=== PATIENT | female | born 1930 | race Hispanic/Latino ===

== ENCOUNTER 2018-07-15 14:30 | Inpatient (IN) | payer MEDICARE ==
--- NOTE | 2018-07-15 17:07 | CT ---
Date of service: 07/15/2018 PROCEDURE: CT HEAD WITHOUT CONTRAST. HISTORY: fall, dizziness COMPARISON: None available. TECHNIQUE: Axial computed tomography images were obtained through the head/brain without intravenous contrast. Radiation dose: Total exam DLP = 1040.51 mGy-cm. This CT exam was performed using one or more of the following dose reduction techniques: Automated exposure control, adjustment of the mA and/or kV according to patient size, and/or use of iterative reconstruction technique. FINDINGS: HEMORRHAGE: No intracranial hemorrhage. BRAIN: There are severe chronic microangiopathic changes. There is a 7 mm isodense subependymal/periventricular lesion in the region of the left posterior body/atrium of the lateral ventricle. There is no mass effect or abnormal extra-axial fluid collection. There is no territorial infarction. The midline sagittal structures are normal.There are coarse atherosclerotic calcifications in the cavernous carotid arteries. VENTRICLES: There is mild age-related global parenchymal volume loss and proportionate enlargement of the ventricles and cortical sulci. CALVARIUM: There is mild hyperostosis frontalis interna. PARANASAL SINUSES: Predominantly clear. MASTOID AIR CELLS: Predominantly clear. OTHER FINDINGS: None. IMPRESSION: No acute intracranial abnormality. 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 MRI of the brain without and with intravenous contrast would be helpful for further characterization. Severe chronic microangiopathic changes and mild age-related global parenchymal volume loss.
[2018-07-15 17:17] LABS: BASO % 0.3 % (0.0-2.0); EOS % 0.1 % (0.0-4.0); HEMOGLOBIN 13.5 g/dL (11.0-16.0); LYMPH % 7.9 % (20.0-40.0); MEAN CELL VOLUME 90.5 fL (81.0-99.0); MEAN CORPUSCULAR HEMOGLOBIN 30.3 pg (27.0-31.0); MEAN CORPUSCULAR HGB CONC 33.5 g/dL (33.0-37.0); MEAN PLATELET VOLUME 7.6 fL (7.2-11.7); MONO # 0.7 K/uL (0.0-0.8); MONO % 5.3 % (0.0-10.0); NEUT % 86.4 % (50.0-75.0); NRBC % 0.1 % (0.0-2.0); PLATELET COUNT 178 K/uL (130-400); RBC 4.45 Mil/uL (3.80-5.20); RED CELL DISTRIBUTION WIDTH 13.9 % (11.5-14.5); WHITE BLOOD COUNT 12.7 K/uL (4.8-10.8)
[2018-07-15 17:29] LABS: BLOOD UREA NITROGEN 15 mg/dL (7-17); CALCIUM 9.7 mg/dl (8.6-10.4); GFR NON-AFRICAN AMERICAN > 60
--- NOTE | 2018-07-15 17:32 | C.PDOC ---
History Of Present Illness 87 y/o female presents to ED for evaluation of laceration to back of her head. Pt states she was making breakfast in the kitchen when she suddenly felt dizzy, fell to ground and struck back of her head. As per [facility] pt was found laying next to the bed. Patient's friend states she had called the front desk lead at [facility] today (after the pt did not lease picker her phone call) who went to check on the patient in her room and found patient laying next to her bed. Pt complains of dizziness and mild headache at this time. She admits to history of dizziness in the past and takes Meclizine. Otherwise, denies visual changes, nausea, vomiting, fever, or any other complaints at this time. - HPI Time Seen by Provider: 07/15/18 15:09 Chief Complaint (Nursing): Trauma History Per: Patient History/Exam Limitations: no limitations Recent travel outside of the [place]: No Additional History Per: Patient Past Medical History Reviewed: Historical Data, Nursing Documentation, Vital Signs Vital Signs: Last Vital Signs Temp 97.8 F 07/15/18 14:43 Pulse 95 H 07/15/18 14:43 Resp 17 07/15/18 14:43 BP 149/75 07/15/18 14:43 Pulse Ox 98 07/15/18 14:43 - Medical History PMH: Hypercholesterolemia Family History: States: Unknown Family Hx - Social History Hx Alcohol Use: No Hx Substance Use: No Review Of Systems Except As Marked, All Systems Reviewed And Found Negative. Constitutional: Negative for: Fever, Chills Eyes: Negative for: Vision Change Cardiovascular: Negative for: Chest Pain Respiratory: Negative for: Shortness of Breath Gastrointestinal: Negative for: Nausea, Vomiting, Abdominal Pain Neurological: Positive for: Headache, Dizziness. Negative for: Weakness, Numbness, Change in Speech Physical Exam - Physical Exam Appears: Non-toxic, No Acute Distress Skin: Warm, Dry Head: Atraumatic, Normacephalic, Laceration (1.5cm of laceration to left occipital scalp, bleeding controlled) Eye(s): bilateral: Normal Inspection, Other (no nystagmus) Oral Mucosa: Moist Neck: Normal ROM, Supple Chest: Symmetrical Cardiovascular: Rhythm Regular, No Murmur Respiratory: Normal Breath Sounds, No Rales, No Rhonchi, No Wheezing Gastrointestinal/Abdominal: Soft, No Tenderness Extremity: Normal ROM Neurological/Psych: Oriented x3, Normal Speech, No Other (no focal deficits) ED Course And Treatment - Laboratory Results Result Diagrams: 07/15/18 17:11 07/15/18 17:11 O2 Sat by Pulse Oximetry: 98 (RA) Pulse Ox Interpretation: Normal - CT Scan/US CT head Other Rad Studies (CT/US): Read By Radiologist CT/US Interpretation: Date of service: 07/15/2018. PROCEDURE: CT HEAD WITHOUT CONTRAST. HISTORY: fall, dizziness. COMPARISON: None available. TECHNIQUE: Axial computed tomography images were obtained through the head/brain without intravenous contrast. Radiation dose: Total exam DLP = 1040.51 mGy-cm. This CT exam was performed using one or more of the following dose reduction techni ques: Automated exposure control, adjustment of the mA and/or kV according to patient size, and/or use of iterative reconstruction technique. FINDINGS: HEMORRHAGE: No intracranial hemorrhage. BRAIN: There are severe chronic microangiopathic changes. There is a 7 mm isodense subependymal/periventricular lesion in the region of the left posterior body/atrium of the lateral ventricle. There is no mass effect or abnormal extra-axial fluid collection. There is no territorial infarction. The midline sagittal structures are normal.There are coarse atherosclerotic calcifications in the cavernous carotid arteries. VENTRICLES: There is mild age-related global parenchymal volume loss and pro portionate enlargement of the ventricles and cortical sulci. CALVARIUM: There is mild hyperostosis frontalis interna. PARANASAL SINUSES: Predominantly clear. MASTOID AIR CELLS: Predominantly clear. OTHER FINDINGS: None. IMPRESSION: No acute intracranial abnormality. 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 MRI of the brain without and with intravenous contrast would be helpful for further characterization. Severe chronic microangiopathic changes and mild age-related global parenchymal volume loss. Medical Decision Making Medical Decision Making: Plan: * Blood work * Urinalysis * Head CT * EKG * Meclizine Patient re-evaluated after receiving meclizine and was still dizzy, states she cannot even sit up due to the dizziness. This is not typical for her. Results discussed with patient, will admit for dizziness. Case discussed with Dr. Hernandez, medical service utilization review coordinator. Accepts patient for admission. Disposition - Disposition Disposition: HOSPITALIZED Disposition Time: 18:22 Condition: FAIR - Clinical Impression Clinical Impression: Dizziness - Scribe Statement The provider has reviewed the documentation as recorded by the Scribe KP All medical record entries made by the Scribe were at my direction and personally dictated by me. I have reviewed the chart and agree that the record accurately reflects my personal performance of the history, physical exam, medical decision making, and the department course for this patient. I have also personally directed, reviewed, and agree with the discharge instructions and disposition.
[2018-07-15 17:44] LABS: URINE BILIRUBIN NEGATIVE (NEGATIVE); URINE BLOOD NEGATIVE (NEGATIVE); URINE CLARITY Clear (Clear); URINE COLOR Straw (YELLOW); URINE GLUCOSE (UA) 1+ mg/dL (Normal); URINE LEUKOCYTE ESTERASE NEG Leu/uL (Negative); URINE PROTEIN NEGATIVE (NEGATIVE); URINE UROBILINOGEN NORMAL mg/dL (0.2-1.0)
[2018-07-15 19:33] LABS: BANDS 1 % (0-2); LYMPHOCYTE 8 % (20-40); MONOCYTE 6 % (0-10); NEUTROPHIL 85 % (50-75); PLATELET ESTIMATE NORMAL (NORMAL); TOTAL CELLS COUNTED 100
[2018-07-15 22:44] VITALS: RESP 20
[2018-07-15] MEDS: (Novolin R) Insulin Human Regular 100 units/ml vial SC SCH (22:48)
--- NOTE | 2018-07-15 23:25 | CP.PCM.HP ---
Past Patient History - Past Social History Smoking Status: Never Smoked - CARDIAC Hx Hypercholesterolemia: Yes - HEENT Hx Cataracts: Yes - ENDOCRINE/METABOLIC Hx Diabetes Mellitus Type 2: Yes - PSYCHIATRIC Hx Substance Use: No Meds Allergies/Adverse Reactions: Allergies Allergy/AdvReac Type Severity Reaction Status Date / Time No Known Allergies Allergy Verified 07/15/18 17:24 Results - Vital Signs Recent Vital Signs: Last Vital Signs Temp 98.5 F 07/15/18 22:19 Pulse 99 H 07/15/18 22:19 Resp 20 07/15/18 22:19 BP 144/80 07/15/18 22:19 Pulse Ox 97 07/15/18 22:19 - Labs Result Diagrams: 07/15/18 17:11 07/15/18 17:11 Labs: Laboratory Results - last 24 hr 07/15/18 07/15/18 07/15/18 17:11 17:11 17:36 WBC 12.7 H RBC 4.45 Hgb 13.5 Hct 40.2 MCV 90.5 MCH 30.3 MCHC 33.5 RDW 13.9 Plt Count 178 MPV 7.6 Neut % (Auto) 86.4 H Lymph % (Auto) 7.9 L [place] % (Auto) 5.3 Eos % (Auto) 0.1 Baso % (Auto) 0.3 Neut # (Auto) 11.0 H Lymph # (Auto) 1.0 Bladen # (Auto) 0.7 Eos # (Auto) 0.0 Baso # (Auto) 0.0 Neutrophils % (Manual) 85 H Band Neutrophils % 1 Lymphocytes % (Manual) 8 L Monocytes % (Manual) 6 Platelet Estimate Normal Sodium 137 Potassium 3.8 Chloride 99 Carbon Dioxide 25 Anion Gap 17 BUN 15 Creatinine 0.5 L Est GFR ( Amer) > 60 Est GFR (Non-Af Amer) > 60 POC Glucose (mg/dL) Random Glucose 137 H Calcium 9.7 Urine Color Straw Urine Clarity Clear Urine pH 7.0 Ur Specific [place] 1.010 Urine Protein Negative Urine Glucose (UA) 1+ Urine Ketones 1+ H Urine Blood Negative Urine Nitrate Negative Urine Bilirubin Negative Urine Urobilinogen Normal Ur Leukocyte Esterase Neg Urine WBC (Auto) 1 Urine RBC (Auto) 1 07/15/18 22:20 WBC RBC Hgb Hct MCV MCH MCHC RDW Plt Count MPV Neut % (Auto) Lymph % (Auto) [place] % (Auto) Eos % (Auto) Baso % (Auto) Neut # (Auto) Lymph # (Auto) [place] # (Auto) Eos # (Auto) Baso # (Auto) Neutrophils % (Manual) Band Neutrophils % Lymphocytes % (Manual) Monocytes % (Manual) Platelet Estimate Sodium Potassium Chloride Carbon Dioxide Anion Gap BUN Creatinine Est GFR ( Amer) Est GFR (Non-Af Amer) POC Glucose (mg/dL) 123 H Random Glucose Calcium Urine Color Urine Clarity Urine pH Ur Specific [place] Urine Protein Urine Glucose (UA) Urine Ketones Urine Blood Urine Nitrate Urine Bilirubin Urine Urobilinogen Ur Leukocyte Esterase Urine WBC (Auto) Urine RBC (Auto)
[2018-07-16] MEDS: (Novolin R) Insulin Human Regular 100 units/ml vial SC SCH ×4 (08:25→22:47)
[2018-07-16] MEDS: metFORMIN 250 mg Tab PO SCH ×2 (10:15→19:06)
[2018-07-16] MEDS: Enoxaparin 40 mg Syringe SC SCH (10:15)
--- NOTE | 2018-07-16 10:26 | MRI ---
Date of service: 07/16/2018 PROCEDURE: MRI BRAIN WITHOUT CONTRAST HISTORY: vertigo COMPARISON: Comparison is made to the previous CT head dated 07/15/2018 TECHNIQUE: Multiplanar, multisequence MR images of the brain were obtained without intravenous contrast enhancement. FINDINGS: HEMORRHAGE: None DWI: No evidence of an acute or early subacute infarction. BRAIN PARENCHYMA: There is a I is a T1 and T2 signal lesion at the lateral border of the posterior aspect of the left lateral ventricle at the junction of the left lateral ventricular body and atrium. The lesion is protruding into the posterior horn of the lateral ventricle. Findings likely represent ependyma mass or meningioma.. Mild atrophy is noted. There is extensive white matter changes again noted suggestive of chronic microvascular ischemic disease. VENTRICLES: Unremarkable. No hydrocephalus. CRANIUM: Unremarkable. ORBITS: Grossly unremarkable. PARANASAL SINUSES/MASTOIDS: Clear VASCULAR SYSTEM: Skull base flow voids intact. OTHER FINDINGS: None. IMPRESSION: Suboptimal assessment without IV contrast administration. 1.8 x 1.3 centimeter isointense T1 and T2 signal at the lateral border of the left lateral ventricle at the junction of the body and atrium. The differential diagnosis includes ependymoma mass versus meningioma. Follow-up reassessment by MRI after 3 months is suggested. No evidence of acute infarct or intracranial hemorrhage. Mild atrophy and extensive white matter changes likely represent chronic microvascular ischemic disease.
--- NOTE | 2018-07-16 20:09 | CP.PCM.PN ---
Subjective - Subjective Subjective: dictated Objective - Vital Signs/Intake and Output Vital Signs (last 24 hours): Temp Pulse Resp BP Pulse Ox 97.6 F 95 H 20 154/85 H 95 07/16/18 19:02 07/16/18 16:00 07/16/18 16:00 07/16/18 16:00 07/16/18 16:00 - Medications Medications: Current Medications Acetaminophen (Tylenol 325mg Tab) 650 mg PO Q6 PRN PRN Reason: Pain, Mild (1-3) Last Admin: 07/16/18 19:02 Dose: 650 mg Enoxaparin Sodium (Lovenox) 40 mg SC DAILY [facility] Last Admin: 07/16/18 10:15 Dose: 40 mg Influenza Virus Vaccine (Fluzone Quad [id number]) 60 mcg IM .ONCE ONE Stop: 07/18/18 10:01 Insulin Human Regular (Novolin R) 0 unit SC [facility]; Protocol Last Admin: 07/16/18 17:00 Dose: Not Given Meclizine HCl (Antivert) 12.5 mg PO TID [facility] Last Admin: 07/16/18 19:03 Dose: 12.5 mg Metformin HCl (Glucophage) 250 mg PO BID [facility] Last Admin: 07/16/18 19:06 Dose: Not Given Pneumococcal Polyvalent Vaccine (Pneumovax 23 Vaccine) 0.5 ml IM .ONCE ONE Stop: 07/18/18 10:01 Rosuvastatin Calcium (Crestor) 10 mg PO HS [facility] Last Admin: 07/15/18 22:48 Dose: 10 mg - Labs Labs: 07/15/18 17:11 07/15/18 17:11
--- NOTE | 2018-07-17 04:34 | CON ---
DATE: 07/16/2018 REQUESTING PHYSICIAN: Dr. Hernandez. REASON FOR CONSULTATION: Dizziness status post fall and abnormal MRI of the brain. HISTORY OF PRESENT ILLNESS: The patient is an 87-year-old lady with past medical history of diabetes mellitus. The patient was admitted because of a fall at [facility], and patient fell down while she was in the kitchen. She felt dizzy and fell down backwards and hit her left parietal occipital against the floors, sustained cut to the scalp, that needed stitches. The patient did not lose her consciousness. The patient was complaining of mild headache, but complaining neck pain as well now. The patient denies any weakness of upper or lower extremities before or after the fall. The patient is complaining of numbness and tingling on the right hand, and the patient denies photophobia, phonophobia, nausea, vomiting, numbness, or tingling of the face or perioral numbness. No urinary incontinence. The patient stated that whenever she looks up, she feels dizzy. This was even before the fall. The patient has been using on and off meclizine. 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 The patient lives in a senior citizen building and able to take care of herself independently. PAST MEDICAL HISTORY: Diabetes mellitus and hyperlipidemia. MEDICATIONS: Meclizine, rosuvastatin, metformin, enoxaparin, insulin, acetaminophen, ketorolac. SOCIAL HISTORY: No smoking or ethanol user. ALLERGIES: NO KNOWN ALLERGIC REACTION TO MEDICATIONS. REVIEW OF SYSTEMS: As per H and P and ER notes reviewed. PHYSICAL EXAMINATION: VITAL SIGNS: Blood pressure 149/75, pulse 95, respirations 17, temperature 97.8. NEUROLOGIC: MENTAL STATUS: The patient is alert, awake, and oriented x3. Normal naming, repetition, and comprehension. No agnosia. No apraxia. No right to left confusion. No finger agnosia. Slightly decreased attention span and short-term memory. CRANIAL NERVES: Pupils 3 mm, bilaterally active. No nystagmus. No double vision. No blurred vision. No field defect. No facial asymmetry. V1 to V3 intact. Accessory nerve intact. There is mild tenderness in the cervical paraspinal muscles and spinal processes; and there are lots of scar in the left parietal occipital region, already is stitched. MOTOR: Normal tone in upper and lower extremities. No pronator drift. No tremors, action, rest and postural. Fine finger movement is slightly impaired. Alternative movement impaired. Finger tapping intact. Positive Phalen's signs on the right side. Upper extremities deltoid, elbow and ore puncher, 5/5. Lower extremities bilateral hip flexion 4+/5. Knee flexion and extension, 4+/5 to 5/5. Ankle dorsiflexion and plantar extension 5/5. Deep tendon reflexes 2 in upper and lower extremities. No clonus. Plantars were equivocal. No fasciculation. Coordination, [id number] intact. DIAGNOSTIC DATA: CAT scan of the brain reviewed consistent with a mass in the left sided lateral ventricle on the CAT scan and MRI also did confirm the diagnosis. MRI was done without contrast. IMPRESSION AND PLAN: 1. 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 The patient will need MRI with contrast and followup MRI in the next few months. 2. Because of the patient's neck pain and occipital back and complaint from neck pain, the patient will need CAT scan of the cervical spine. Unfortunately, it was not done in the emergency room. Because the patient's reflexes at this age are 2 to 2+ and the patient is diabetic, but there is no clonus and plantars are equivocal, the patient will need CAT scan stat of the cervical spine. 3. Possibility of right carpal tunnel syndrome is highly likely. On the MRI with surgical cuts, up to 3 to 4 cervical vertebra does not reveal cord compression or spinal stenosis. The patient will need a CAT scan for lower level, below C4. Further reason as mentioned above. 4. The patient's vertigo is probably positional that the patient had in the past and is on and off, and mostly when the patient is looking upwards more than turning the head to the right and the left. The patient will need vestibular therapy and probably physical therapy for the neck as well. Thank you for the consultation and Dr. Tomlinson will follow the patient on Wednesday. Leonides Valentin MD [facility] # [id number]
[2018-07-17] MEDS: (Novolin R) Insulin Human Regular 100 units/ml vial SC SCH ×4 (08:10→22:30)
[2018-07-17] MEDS: Enoxaparin 40 mg Syringe SC SCH (10:30)
[2018-07-17] MEDS: metFORMIN 250 mg Tab PO SCH ×2 (10:30→18:19)
--- NOTE | 2018-07-17 14:30 | CT ---
Date of service:07/16/2018 CT cervical spine without IV contrast Indication: Rule out cord compression Comparison: None available Technique: Axial computed tomography images were obtained of the cervical spine without the use of intravenous contrast. Coronal and sagittal reformatted images were created and reviewed. This CT exam was performed using 1 or more of the following dose reduction techniques: Automated exposure control, adjustment of the MAA and/or kV according to patient size, and/or use of iterative reconstruction technique. Radiation dose: Total exam DLP = 559.95 mGy-cm. Findings: Straightening of the normal cervical lordosis may be related to muscle spasm or positioning. Multilevel degenerative changes of the spine including osteophyte formation and intervertebral disc space narrowing. Osseous demineralization limits evaluation for acute fracture lines. No acute displaced fracture or subluxation identified. Endplate sclerosis, and joint space narrowing most evident at C6-C7. Grade 1 anterolisthesis of C7 on T1. The prevertebral soft tissues and spinolaminar lines appear intact. The lateral masses are preserved. The dens tip is intact. There is proper alignment of the lateral masses of C1 with the C2 vertebral body. Included portions of the thyroid gland appear unremarkable. Included portions of lung apices appear clear. Impression: Straightening of the normal cervical lordosis may be related to muscle spasm or positioning. No evidence of acute fracture or subluxation. Osseous demineralization. Degenerative changes. If concern persists, recommend MRI for further evaluation. Preliminary impression was provided by TIFFANI Angela.
--- NOTE | 2018-07-17 18:01 | CP.PCM.PN ---
Subjective - Subjective Subjective: dictated Objective - Vital Signs/Intake and Output Vital Signs (last 24 hours): Temp Pulse Resp BP Pulse Ox 98.3 F 95 H 20 180/98 H 96 07/17/18 15:00 07/17/18 15:00 07/17/18 15:00 07/17/18 15:00 07/17/18 15:00 Intake and Output: 07/17/18 07/17/18 06:59 18:59 Intake Total 400 Output Total 120 Balance 280 - Medications Medications: Current Medications Acetaminophen (Tylenol 325mg Tab) 650 mg PO Q6 PRN PRN Reason: Pain, Mild (1-3) Last Admin: 07/16/18 19:02 Dose: 650 mg Alprazolam (Xanax) 0.25 mg PO TID PRN PRN Reason: Anxiety Stop: 07/23/18 20:43 Last Admin: 07/17/18 16:55 Dose: 0.25 mg Enoxaparin Sodium (Lovenox) 40 mg SC DAILY [facility] Last Admin: 07/17/18 10:30 Dose: 40 mg Imipramine HCl (Tofranil) 50 mg PO [facility] Last Admin: 07/16/18 22:10 Dose: 50 mg Influenza Virus Vaccine (Fluzone Quad [id number]) 60 mcg IM .ONCE ONE Stop: 07/18/18 10:01 Insulin Human Regular (Novolin R) 0 unit SC [facility]; Protocol Last Admin: 07/17/18 12:20 Dose: Not Given Meclizine HCl (Antivert) 12.5 mg PO TID [facility] Last Admin: 07/17/18 13:30 Dose: 12.5 mg Metformin HCl (Glucophage) 250 mg PO BID [facility] Last Admin: 07/17/18 10:30 Dose: 250 mg Pneumococcal Polyvalent Vaccine (Pneumovax 23 Vaccine) 0.5 ml IM .ONCE ONE Stop: 07/18/18 10:01 Rosuvastatin Calcium (Crestor) 10 mg PO [facility] Last Admin: 07/16/18 22:46 Dose: 10 mg - Labs Labs: 07/15/18 17:11 07/15/18 17:11
--- NOTE | 2018-07-18 06:08 | PN ---
DATE: 07/16/2018 SUBJECTIVE: Ame Luis is afebrile. She still gets dizzy and her vertigo is positional. The patient has MRI positive for questionable meningioma. She is afebrile. No shortness of breath. No chest pain. PHYSICAL EXAMINATION: VITAL SIGNS: Blood pressure 154/85, pulse 95, respiratory rate 20, temperature 97.6. LUNGS: Clear. CVS: S1 and S2 regular. ABDOMEN: Soft and nontender. Bowel sounds are positive. ASSESSMENT: 1. Syncope with a fall and head injury. The patient is to be seen by Neurology. 2. Hypertension. 3. Hyperlipidemia. 4. Type 2 diabetes. PLAN: Neurology followup. Monitor patient. 2 g sodium diet. MRI of the brain and monitor patient. Physical therapy. The patient will require subacute rehab. Neurology evaluation and further workup per Neurology. Sandeep Hernandez MD
--- NOTE | 2018-07-18 06:08 | PN ---
DATE: 07/17/2018 SUBJECTIVE: The patient, Ishan, is afebrile. She is anxious. Her blood pressure is up. The patient denies any dizziness. The patient is afebrile. No shortness of breath. PHYSICAL EXAMINATION: VITAL SIGNS: BP 164/92, pulse 102, respiratory rate 29, temperature 98.3. LUNGS: Clear. CARDIOVASCULAR SYSTEM: S1 and S2, regular. ABDOMEN: Soft. ASSESSMENT: 1. Syncope, fall. 2. Dehydration. 3. Hypertension. 4. Anxiety and depression. PLAN: Medical management. Physical therapy. Rehab. Sandeep Hernandez MD
--- NOTE | 2018-07-18 06:53 | HP ---
CHIEF COMPLAINT: Fall. HISTORY OF PRESENT ILLNESS: This is an 87-year-old white female with a history of type 2 diabetes for five to six years who is known to have hypertension. She denies any cardiac history. No history of seizure disorder. She denies smoking or alcohol use according to the patient. She has a laceration on the back of the head. According to her, the patient was making breakfast in her kitchen, she felt dizzy, and she fell to the ground, and she struck back of her head to the ground. The patient lives in a senior citizen building. The patient's friends called, the patient was not responding, and front desk assistant her apartment was opened, and she was found to be on the floor right next to her bed. The patient was complaining of dizziness and headache. At this point, the patient is awake, alert. She has a wound on the back of head, right side, bleeding. The patient is not actively bleeding. The patient denies any chest pain, palpitation, nausea, or vomiting. According to the patient, she has chronic vertigo and on and off, she takes meclizine. The patient denies any dysuria, hematuria, or pyuria. She denies any sneezing, itchy eyes, or itchy nose. She denies any cough, sore throat, or runny nose. There is no history of polyuria or polydipsia. There is no history of seizure-like activity, tongue bite, or incontinence of urine. The patient has trauma. She has fall and it looks like she may have lost consciousness. There is no history of abdominal pain. There is no history of leg pain or back pain. PAST MEDICAL HISTORY: Diabetes. SOCIAL HISTORY: Nonsmoker. Non-EtOH user. CURRENT MEDICATIONS: She is on vitamin D, vitamin C, [place], Tofranil, folic acid, glimepiride, metformin, Prevacid, and Tegretol. FAMILY HISTORY: Noncontributory. PHYSICAL EXAMINATION: GENERAL: An elderly female, in no acute distress, mild headache. VITAL SIGNS: Blood pressure 144/80, pulse 99, respiratory rate 20, temperature 98.5. SKIN: No rashes. No bruises. No purpura. HEENT: The patient has evidence of coma with a laceration on the back of the scalp. Pupils equally reactive to light and accommodation. No pallor. No jaundice. NECK: Supple. Flat neck vein. No JVD, no lymph node, no thyromegaly, no carotid bruit. CHEST WALL: Bilateral symmetrical expansion. No masses. LUNGS: Bilaterally clear. No rales. No rhonchi. CARDIOVASCULAR SYSTEM: No heave. No thrill. S1 and S2, regular. ABDOMEN: Soft, nontender. Bowel sounds are positive. RECTAL: Negative. EXTREMITIES: No clubbing, cyanosis, or edema. CENTRAL NERVOUS SYSTEM: Awake, alert, oriented x3. Cranial nerve II through XII are normal. Power 5/5 x4. Plantars are downgoing. Gait not tested. ASSESSMENT: 1. Syncope, fall, could be vertigo with fall, less likely with seizure, less likely due to cardiac arrhythmia. 2. Hypertension. 3. Diabetes. PLAN: Admit. Detailed orders written. Neuro checks, fall, seizure precaution. Monitor the patient. Sandeep Hernandez MD
[2018-07-18] MEDS: (Novolin R) Insulin Human Regular 100 units/ml vial SC SCH ×4 (08:10→21:25)
[2018-07-18] MEDS ORDERED: Pneumococcal 23-Valent Vaccine IM ONE (10:00)
[2018-07-18] MEDS ORDERED: Influenza Vaccine 60 MCG/0.5 ML SYR (3 yr & up) IM ONE (10:00)
[2018-07-18] MEDS ORDERED: Gadodiamide 287 mg/ml 20 ml IV ONE (10:35)
[2018-07-18] MEDS: Enoxaparin 40 mg Syringe SC SCH (11:19)
[2018-07-18] MEDS: metFORMIN 250 mg Tab PO SCH ×2 (11:21→17:36)
--- NOTE | 2018-07-18 11:57 | PN ---
DATE: 07/18/2018 REASON FOR THE CONSULTATION: Syncopal attack. VITAL SIGNS: Blood pressure 150/85, mean arterial pressure of 106, respiratory rate 18, temperature 98.2. The patient was seen and evaluated by Dr. Valentin over the weekend. His consultation and recommendations are greatly appreciated. The patient at present denies any complaints except mild headache and dizziness. From the history, the patient did have two similar episodes happened and had been admitted and required intensive treatment in the past. Her examination, visual field intact. Pupils reactive to light. Extraocular movement normal. No nystagmus. No facial sensory deficit. No facial asymmetry. Hearing is normal. Tongue is midline. Good gag. Motor examination, symmetric on both sides. Deep tendon reflexes of upper extremities are absent. Lower extremities, knees 2+, ankles are 1+, plantars are upgoing on both sides. Examination of the cervical spine showed significant tenderness over the cervical region. The patient is on soft cervical collar. The patient's workup is being reviewed. 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 Her examination is consistent with possible cervical myelopathy. On reviewing the CT of the head, the patient definitely need MRI of the cervical spine cervical myelopathy for further management. The patient also scheduled to have a carotid Doppler as well. We will review the workup. The patient should be kept on fall precaution and will be followed closely with you. Randal Tomlinson MD
[2018-07-18 14:15] LABS: HEMOGLOBIN 14.1 g/dL (11.0-16.0); MEAN CELL VOLUME 91.8 fL (81.0-99.0); MEAN CORPUSCULAR HEMOGLOBIN 31.4 pg (27.0-31.0); MEAN CORPUSCULAR HGB CONC 34.2 g/dL (33.0-37.0); MEAN PLATELET VOLUME 7.9 fL (7.2-11.7); RBC 4.5 Mil/uL (3.80-5.20); RED CELL DISTRIBUTION WIDTH 14.1 % (11.5-14.5)
[2018-07-18 14:21] LABS: BLOOD UREA NITROGEN 22 mg/dL (7-17); CALCIUM 9.5 mg/dl (8.6-10.4); GFR NON-AFRICAN AMERICAN > 60
--- NOTE | 2018-07-18 14:29 | VASCLAB ---
Date of service: 07/16/2018 PROCEDURE: Carotid Duplex Exam. HISTORY: vertigo COMPARISON: None available. TECHNIQUE: Grayscale and duplex Doppler evaluation of the cervical carotid and vertebral arteries were performed. The common carotid, carotid bifurcations and cervical Internal Carotid Artery (ICA) and proximal External Carotid Artery (ECA) were evaluated. The vertebral arteries were evaluated for gross patency and flow direction. Report prepared by KJ Sifuentes, RVT FINDINGS: RIGHT CAROTID ARTERIES: 1. Common Carotid Artery: No significant focal plaque formation of the right common carotid artery. Maximum Peak Systolic velocity: 69 cm/sec: End-diastolic velocity 9 cm/sec. 2. Carotid Bifurcation: plaque formation. Maximum Peak Systolic velocity: 65 cm/sec: End-diastolic velocity 10 cm/sec. 3. Internal Carotid Artery: Plaque description: 3.1. Proximal Segment: Peak systolic velocity 44 cm/sec: End-diastolic velocity 11 cm/sec - % stenosis 3.2. Middle Segment: Peak systolic velocity 72 cm/sec: End-diastolic velocity 20 cm/sec - % stenosis 3.3. Distal Segment: Peak systolic velocity 70 cm/sec: End-diastolic velocity 16 cm/sec - % stenosis 4. External Carotid Artery: No significant focal plaque formation.71 Peak systolic velocity cm/sec 5. ICA/CCA Ratio: 1.1 LEFT CAROTID ARTERIES: 1. Common Carotid Artery: No significant focal plaque formation of the left common carotid artery. Maximum Peak Systolic velocity: 75 cm/sec: End-diastolic velocity 12 cm/sec. 2. Carotid Bifurcation: plaque formation. Maximum Peak Systolic velocity: 57 cm/sec: End-diastolic velocity 7 cm/sec. 3. Internal Carotid Artery: Plaque description: 3.1. Proximal Segment: Peak systolic velocity 55 cm/sec: End-diastolic velocity 12 cm/sec - % stenosis 3.2. Middle Segment: Peak systolic velocity 67 cm/sec: End-diastolic velocity 14 cm/sec - % stenosis 3.3. Distal Segment: Peak systolic velocity 71 cm/sec: End-diastolic velocity 18 cm/sec - % stenosis 4. External Carotid Artery: No significant focal plaque formation. Peak systolic velocity 100 cm/sec 5. ICA/CCA Ratio: 1.2 VERTEBRAL ARTERIES: 1. Right Vertebral Artery: The right vertebral artery flow direction is antegrade. 2. Left Vertebral Artery: The left vertebral artery flow direction is antegrade. OTHER FINDINGS: 1. Right Brachial Blood pressure: mmHg. 2. Left Brachial Blood pressure: mmHg. IMPRESSION: RIGHT: Duplex scan does not suggest hemodynamically significant stenosis of the right extracranial carotid arteries. LEFT: Duplex scan does not suggest hemodynamically significant stenosis of the left extracranial carotid arteries.
--- NOTE | 2018-07-18 15:06 | MRI ---
Date of service: 07/18/2018 PROCEDURE: MRI BRAIN WITH AND WITHOUT CONTRAST HISTORY: DIZZINESS/? MENGIOMA COMPARISON: 07/16/2018 TECHNIQUE: Multiplanar, multisequence MR images of the brain were obtained with and without intravenous contrast enhancement. FINDINGS: HEMORRHAGE: None DWI: No evidence of an acute or early subacute infarction. BRAIN PARENCHYMA: There is redemonstration of 1.6 x 0.7 cm T1 isointense and FLAIR hyperintense nonenhancing mass in the left subependymal/periventricular region of the occipital horn of the left lateral ventricle. There are severe chronic microangiopathic changes. There is no mass effect or abnormal extra-axial fluid collection. There is no territorial infarction. The midline sagittal structures are normal. ENHANCEMENT: No abnormal intracranial enhancement. VENTRICLES: There is moderate age-related global parenchymal volume loss and proportionate enlargement of the ventricles and cortical sulci. unremarkable. ORBITS: Grossly unremarkable. PARANASAL SINUSES/MASTOIDS: Predominantly clear. VASCULAR SYSTEM: There are normal signal voids in the larger intracranial arteries. OTHER FINDINGS: None . 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 The differential considerations include intraventricular meningioma, subependymoma and metastasis. No evidence for hydrocephalus or mass effect. Follow-up MRI with and without contrast in 6-12 month interval is recommended to assess stability.
--- NOTE | 2018-07-18 16:01 | MRI ---
Date of service: 07/18/2018 PROCEDURE: MR CERVICAL SPINE WITHOUT CONTRAST HISTORY: MYELOPATHY COMPARISON: None available. TECHNIQUE: Multiecho multiplanar sequences were performed through the cervical spine without the use of intravenous contrast. FINDINGS: There is normal alignment of the cervical vertebral bodies. There is normal cervical lordosis. There is no acute fracture or spondylolisthesis. Bone marrow signal is within normal limits. The craniocervical junction is normal. The atlantoaxial joint is normal. The cervical cord is normal in contour, caliber and has normal intrinsic signal. C2-C3: Disc osteophyte complex and asymmetric moderate left facet arthropathy result in mild left neural foraminal narrowing. No central spinal canal stenosis. C3-C4: Disc osteophyte complex and asymmetric mild facet arthropathy, worse on the right result in mild left neural foraminal narrowing. No spinal canal stenosis. C4-C5: Disc osteophyte complex and small central disc protrusion in conjunction with severe left facet arthropathy result in mild left neural foraminal narrowing. Mild ligamentum flavum infolding contributes to mild spinal canal stenosis. C5-C6: Broad-based disc osteophyte complex and mild spinal canal stenosis. Asymmetric right uncovertebral joint hypertrophy and bilateral facet arthropathy result in moderate right and mild left neural foraminal narrowing. There is a small right perineural cyst. C6-C7: Broad-based disc osteophyte complex in conjunction with mild ligamentum flavum infolding result in moderate spinal canal narrowing. Also noted is a superimposed left foraminal disc protrusion which impinges on the exiting left C7 nerve root. Moderate bilateral facet arthropathy contribute to mild right and severe left neural foraminal narrowing. C7-T1: Disc osteophyte complex without central spinal canal stenosis. Moderate bilateral facet arthropathy without neural foraminal narrowing. OTHER FINDINGS: There is a well-circumscribed round 7 x 9 mm T1 hypo intense and T2/stir hyperintense round pre epiglottic lesion. IMPRESSION: 1. Multilevel degenerative disc disease, worse at C6-7 with left foraminal disc protrusion with impinges on the exiting left C7 nerve root. Also noted is moderate spinal canal stenosis, mild right and severe left neural foraminal narrowing. 2. 7 x 9 mm indeterminate round pre epiglottic lesion. Dedicated CT scan of the neck with intravenous contrast is recommended for further characterization.
--- NOTE | 2018-07-18 20:45 | CARD ---
APPROVED REPORT Date of service: 07/15/2018 EKG Measurement Heart [id number] <Conclusion> Sinus rhythm with 1st degree AV block Cannot rule out Anterior infarct, age undetermined Abnormal ECG
--- NOTE | 2018-07-18 23:35 | CP.PCM.PN ---
Subjective - Subjective Subjective: dictated Objective - Vital Signs/Intake and Output Vital Signs (last 24 hours): Temp Pulse Resp BP Pulse Ox 98.3 F 99 H 20 159/85 H 96 07/18/18 15:00 07/18/18 15:00 07/18/18 15:00 07/18/18 15:00 07/18/18 15:00 Intake and Output: 07/18/18 07/19/18 18:59 06:59 Intake Total 240 Output Total 250 900 Balance -10 -900 - Medications Medications: Current Medications Acetaminophen (Tylenol 325mg Tab) 650 mg PO Q6 PRN PRN Reason: Pain, Mild (1-3) Last Admin: 07/18/18 09:24 Dose: 650 mg Alprazolam (Xanax) 0.25 mg PO TID PRN PRN Reason: Anxiety Stop: 07/23/18 20:43 Last Admin: 07/18/18 21:39 Dose: 0.25 mg Enoxaparin Sodium (Lovenox) 40 mg SC DAILY [facility] Last Admin: 07/18/18 11:19 Dose: 40 mg Imipramine HCl (Tofranil) 50 mg PO HS [facility] Last Admin: 07/18/18 21:34 Dose: 50 mg Insulin Human Regular (Novolin R) 0 unit SC [facility]; Protocol Last Admin: 07/18/18 21:25 Dose: Not Given Losartan Potassium (Cozaar) 25 mg PO DAILY [facility] Last Admin: 07/18/18 11:15 Dose: 25 mg Meclizine HCl (Antivert) 12.5 mg PO TID [facility] Last Admin: 07/18/18 17:36 Dose: 12.5 mg Metformin HCl (Glucophage) 250 mg PO BID [facility] Last Admin: 07/18/18 17:36 Dose: 250 mg Rosuvastatin Calcium (Crestor) 10 mg PO HS [facility] Last Admin: 07/18/18 21:34 Dose: 10 mg - Labs Labs: 07/18/18 14:03 07/18/18 14:03
--- NOTE | 2018-07-19 07:49 | PN ---
DATE: 07/18/2018 SUBJECTIVE: The patient, Ishan, is more alert. She is calm. She is forgetful. She has a cervical collar on. She needs physiotherapy and possible subacute rehab. No nausea or vomiting. PHYSICAL EXAMINATION: VITAL SIGNS: Blood pressure 159/85, pulse 99, respiratory rate 20, temperature 98.3. LUNGS: Clear. No rales. No rhonchi. CARDIOVASCULAR SYSTEM: S1 and S2, regular. ABDOMEN: Soft. ASSESSMENT: 1. Syncope, fall with head injury. 2. Memory loss. 3. Hypertension. 4. Anxiety and depression. PLAN: Physiotherapy. Subacute rehab. Monitor the patient. Sandeep Hernandez MD
[2018-07-19] MEDS: (Novolin R) Insulin Human Regular 100 units/ml vial SC SCH ×4 (07:52→21:52)
[2018-07-19] MEDS: Enoxaparin 40 mg Syringe SC SCH (10:32)
[2018-07-19] MEDS: metFORMIN 250 mg Tab PO SCH ×2 (11:00→17:35)
--- NOTE | 2018-07-19 11:23 | PN ---
DATE: 07/19/2018 TIME OF EVALUATION: 07:10 a.m. NEUROLOGICAL PROBLEM: Syncopal attack and cervical myopathy. PHYSICAL EXAMINATION: VITAL SIGNS: Blood pressure 157/90, mean arterial pressure of 112, respiratory rate 18, and temperature 98.3. The patient is still on the cervical collar. Denies any new symptoms. There is still the same problem. She was getting out of bed on her own as per the patient. Examination is consistent with cervical myelopathy. MRI of the cervical spine reviewed, showed significant degenerative disease at C5-C6 and C6-C7 with impingement of left C7 root with impingement of thecal sac. The patient is recommended to have electrodiagnostic studies including electromyography and nerve conduction study, which can be done as outpatient to further localizing her problem and treatment. From the neurological point of view, the patient is stable, can be discharged if medically stable. The patient will be followed as outpatient. At this point, I am signing her off. If any change in neuro status, consider to call me back. Randal Tomlinson MD
--- NOTE | 2018-07-19 22:28 | CP.PCM.PN ---
Subjective - Subjective Subjective: dictated Objective - Vital Signs/Intake and Output Vital Signs (last 24 hours): Temp Pulse Resp BP Pulse Ox 98.2 F 97 H 20 153/83 H 96 07/19/18 15:00 07/19/18 15:00 07/19/18 15:00 07/19/18 15:00 07/19/18 15:00 Intake and Output: 07/19/18 07/20/18 18:59 06:59 Intake Total 489 Output Total 900 Balance 489 -900 - Medications Medications: Current Medications Acetaminophen (Tylenol 325mg Tab) 650 mg PO Q6 PRN PRN Reason: Pain, Mild (1-3) Last Admin: 07/19/18 12:47 Dose: 650 mg Alprazolam (Xanax) 0.25 mg PO TID PRN PRN Reason: Anxiety Stop: 07/23/18 20:43 Last Admin: 07/19/18 21:55 Dose: 0.25 mg Enoxaparin Sodium (Lovenox) 40 mg SC DAILY [facility] Last Admin: 07/19/18 10:32 Dose: 40 mg Imipramine HCl (Tofranil) 50 mg PO HS [facility] Last Admin: 07/19/18 21:55 Dose: 50 mg Insulin Human Regular (Novolin R) 0 unit SC [facility]; Protocol Last Admin: 07/19/18 21:52 Dose: Not Given Losartan Potassium (Cozaar) 25 mg PO DAILY [facility] Last Admin: 07/19/18 10:32 Dose: 25 mg Meclizine HCl (Antivert) 12.5 mg PO TID [facility] Last Admin: 07/19/18 17:37 Dose: 12.5 mg Metformin HCl (Glucophage) 250 mg PO BID [facility] Last Admin: 07/19/18 17:35 Dose: 250 mg Rosuvastatin Calcium (Crestor) 10 mg PO HS [facility] Last Admin: 07/19/18 21:55 Dose: 10 mg - Labs Labs: 07/18/18 14:03 07/18/18 14:03
--- NOTE | 2018-07-20 04:09 | PN ---
DATE: 07/19/2018 SUBJECTIVE: The patient, Ishan, is afebrile. No shortness of breath. More alert. No nausea or vomiting. She feels anxious. She gets headaches, and she gets dizzy physical therapy and the patient is for subacute rehabilitation. PHYSICAL EXAMINATION: VITAL SIGNS: Blood pressure 152/83, pulse 106, respiratory rate 20, temperature 98.2. LUNGS: Clear. CVS: S1 and S2 regular. ABDOMEN: Soft and nontender. Bowel sounds are positive. ASSESSMENT: 1. Dizziness, syncope. Continue telemetry. Continue to monitor. Continue physical therapy. 2. Hypertension. 3. Anxiety and depression. PLAN: Continue current medication and physical therapy rehab. Sandeep Hernandez MD
[2018-07-20] MEDS: (Novolin R) Insulin Human Regular 100 units/ml vial SC SCH ×3 (07:59→17:37)
[2018-07-20 08:26] VITALS: TEMP 98.2
[2018-07-20] MEDS: Enoxaparin 40 mg Syringe SC SCH (09:38)
[2018-07-20] MEDS: metFORMIN 250 mg Tab PO SCH ×2 (09:42→17:36)
[2018-07-20 15:51] VITALS: BP 107/71; PULSE 85; O2SAT 98
--- NOTE | 2018-07-20 16:39 | CP.PCM.PN ---
Subjective - Date & Time of Evaluation Date of Evaluation: 07/20/18 Time of Evaluation: 16:37 - Subjective Subjective: -FOLLOW UP WITH DR. AGUIRRE IN THE OFFICE WITHIN 1 WEEK---CALL THE OFFICE TO MAKE YOUR APPOINTMENT. -FOLLOW UP WITH DR. BOO (NEUROLOGY) IN THE OFFICE WITHIN 1-2 WEEKS---CALL THE OFFICE TO MAKE YOUR APPOINTMENT. -CONTINUE YOUR HOME MEDICATIONS USUAL. -REFILLS FOR YOUR HOME MEDICATIONS HAVE BEEN SENT TO YOUR PHARMACY. -YOU HAVE BEEN PRESCRIBED ANTIVERT (THIS IS FOR DIZZINESS)---TAKE 1 TABLET BY MOUTH EVERY 8 HOURS ONLY IF YOU HAVE DIZZINESS; DO NOT TAKE IF YOU FEEL FINE. THIS MEDICATION MAY MAKE YOU DROWSY, SO BE VERY CAREFUL IF YOU TAKE IT. -[employer] IS THE HOME CARE COMPANY THAT WILL PROVIDE HOME THERAPY FOR YOU. THEY WILL CONTACT YOU WITHIN 24-48 HOURS OF DISCHARGE TO SET UP AN INITIAL VISIT DAY. IF YOU DO NOT HEAR FROM THEM BY WEDNESDAY, FEEL FREE TO CALL THEM: [phone]. -IF YOU HAVE ANY FURTHER CONCERNS OR QUESTIONS, CONTACT DR. AGUIRRE'S OFFICE. Objective - Vital Signs/Intake and Output Vital Signs (last 24 hours): Temp Pulse Resp BP Pulse Ox 98.2 F 85 20 107/71 98 07/20/18 15:00 07/20/18 15:00 07/20/18 15:00 07/20/18 15:00 07/20/18 15:00 Intake and Output: 07/20/18 07/20/18 06:59 18:59 Intake Total 0 Output Total 900 Balance -900 - Medications Medications: Current Medications Acetaminophen (Tylenol 325mg Tab) 650 mg PO Q6 PRN PRN Reason: Pain, Mild (1-3) Last Admin: 07/19/18 12:47 Dose: 650 mg Alprazolam (Xanax) 0.25 mg PO TID PRN PRN Reason: Anxiety Stop: 07/23/18 20:43 Last Admin: 07/20/18 09:38 Dose: 0.25 mg Enoxaparin Sodium (Lovenox) 40 mg SC DAILY [facility] Last Admin: 07/20/18 09:38 Dose: 40 mg Imipramine HCl (Tofranil) 50 mg PO HS [facility] Last Admin: 07/19/18 21:55 Dose: 50 mg Insulin Human Regular (Novolin R) 0 unit SC [facility]; Protocol Last Admin: 07/20/18 12:07 Dose: Not Given Losartan Potassium (Cozaar) 25 mg PO DAILY [facility] Last Admin: 07/20/18 09:38 Dose: 25 mg Meclizine HCl (Antivert) 12.5 mg PO TID [facility] Last Admin: 07/20/18 13:55 Dose: 12.5 mg Metformin HCl (Glucophage) 250 mg PO BID [facility] Last Admin: 07/20/18 09:42 Dose: 250 mg Rosuvastatin Calcium (Crestor) 10 mg PO HS [facility] Last Admin: 07/19/18 21:55 Dose: 10 mg - Labs Labs: 07/18/18 14:03 07/18/18 14:03
--- NOTE | 2018-07-20 19:08 | CP.PCM.DIS ---
Provider - Provider Date of Admission: 07/15/18 18:22 Attending physician: Sandeep Hernandez MD Hospital Course - Lab Results Lab Results: Most Recent Lab Values WBC 9.0 K/uL (4.8-10.8) 07/18/18 14:03 RBC 4.50 Mil/uL (3.80-5.20) 07/18/18 14:03 Hgb 14.1 g/dL (11.0-16.0) 07/18/18 14:03 Hct 41.3 % (34.0-47.0) 07/18/18 14:03 MCV 91.8 fL (81.0-99.0) 07/18/18 14:03 MCH 31.4 pg (27.0-31.0) H 07/18/18 14:03 MCHC 34.2 g/dL (33.0-37.0) 07/18/18 14:03 RDW 14.1 % (11.5-14.5) 07/18/18 14:03 Plt Count 227 K/uL (130-400) 07/18/18 14:03 MPV 7.9 fL (7.2-11.7) 07/18/18 14:03 Neut % (Auto) 86.4 % (50.0-75.0) H 07/15/18 17:11 Lymph % (Auto) 7.9 % (20.0-40.0) L 07/15/18 17:11 [place] % (Auto) 5.3 % (0.0-10.0) 07/15/18 17:11 Eos % (Auto) 0.1 % (0.0-4.0) 07/15/18 17:11 Baso % (Auto) 0.3 % (0.0-2.0) 07/15/18 17:11 Neut # (Auto) 11.0 K/uL (1.8-7.0) H 07/15/18 17:11 Lymph # (Auto) 1.0 K/uL (1.0-4.3) 07/15/18 17:11 [place] # (Auto) 0.7 K/uL (0.0-0.8) 07/15/18 17:11 Eos # (Auto) 0.0 K/uL (0.0-0.7) 07/15/18 17:11 Baso # (Auto) 0.0 K/uL (0.0-0.2) 07/15/18 17:11 Neutrophils % (Manual) 85 % (50-75) H 07/15/18 17:11 Band Neutrophils % 1 % (0-2) 07/15/18 17:11 Lymphocytes % (Manual) 8 % (20-40) L 07/15/18 17:11 Monocytes % (Manual) 6 % (0-10) 07/15/18 17:11 Platelet Estimate Normal (NORMAL) 07/15/18 17:11 Sodium 137 mmol/L (132-148) 07/18/18 14:03 Potassium 4.1 mmol/L (3.6-5.2) 07/18/18 14:03 Chloride 98 mmol/L (98-107) 07/18/18 14:03 Carbon Dioxide 26 mmol/L (22-30) 07/18/18 14:03 Anion Gap 17 (10-20) 07/18/18 14:03 BUN 22 mg/dL (7-17) H 07/18/18 14:03 Creatinine 0.7 mg/dL (0.7-1.2) 07/18/18 14:03 Est GFR ( Amer) > 60 07/18/18 14:03 Est GFR (Non-Af Amer) > 60 07/18/18 14:03 POC Glucose (mg/dL) 98 mg/dL (65-110) 07/20/18 16:30 Random Glucose 177 mg/dL (65-105) H 07/18/18 14:03 Calcium 9.5 mg/dl (8.6-10.4) 07/18/18 14:03 Magnesium 1.8 mg/dL (1.6-2.3) 07/18/18 14:03 Urine Color Straw (YELLOW) 07/15/18 17:36 Urine Clarity Clear (Clear) 07/15/18 17:36 Urine pH 7.0 (5.0-8.0) 07/15/18 17:36 Ur Specific [facility] 1.010 (1.003-1.030) 07/15/18 17:36 Urine Protein Negative mg/dL (NEGATIVE) 07/15/18 17:36 Urine Glucose (UA) 1+ mg/dL (Normal) 07/15/18 17:36 Urine Ketones 1+ mg/dL (NEGATIVE) H 07/15/18 17:36 Urine Blood Negative (NEGATIVE) 07/15/18 17:36 Urine Nitrate Negative (NEGATIVE) 07/15/18 17:36 Urine Bilirubin Negative (NEGATIVE) 07/15/18 17:36 Urine Urobilinogen Normal mg/dL (0.2-1.0) 07/15/18 17:36 Ur Leukocyte Esterase Neg [place]/uL (Negative) 07/15/18 17:36 Urine WBC (Auto) 1 /hpf (0-5) 07/15/18 17:36 Urine RBC (Auto) 1 /hpf (0-3) 07/15/18 17:36 Discharge Plan - Discharge Medications Prescriptions: Alprazolam 1 tab PO BID #28 tablet Meclizine [Antivert] 12.5 mg PO Q8 PRN #15 tab PRN Reason: Dizziness Ascorbic Acid [C-1000] 1 tab PO DAILY #30 tablet Folic Acid 1 mg PO DAILY #30 tab Glimepiride 2 mg PO BID #30 Lutein 1 tab PO DAILY #30 tablet MetFORMIN 1,000 mg PO BID #60 Calcium Carbonate [Oscal] 1 tab PO DAILY #30 tab Imipramine [Tofranil] 1 tab PO HS #30 tab - Follow Up Plan Condition: FAIR Disposition: HOME/ ROUTINE Instructions: Diabetes Exchange Diet, Diabetes Diet , Dizziness, Nonvertigo, (DC), Alprazolam, Ascorbic Acid, Glimepiride, Meclizine, Metformin, Lutein Additional Instructions: -FOLLOW UP WITH DR. HERNANDEZ IN THE OFFICE WITHIN 1 WEEK---CALL THE OFFICE TO MAKE YOUR APPOINTMENT. -FOLLOW UP WITH DR. BOO (NEUROLOGY) IN THE OFFICE WITHIN 1-2 WEEKS---CALL THE OFFICE TO MAKE YOUR APPOINTMENT. -CONTINUE YOUR HOME MEDICATIONS USUAL. -REFILLS FOR YOUR HOME MEDICATIONS HAVE BEEN SENT TO YOUR PHARMACY. -YOU HAVE BEEN PRESCRIBED ANTIVERT (THIS IS FOR DIZZINESS)---TAKE 1 TABLET BY MOUTH EVERY 8 HOURS ONLY IF YOU HAVE DIZZINESS; DO NOT TAKE IF YOU FEEL FINE. THIS MEDICATION MAY MAKE YOU DROWSY, SO BE VERY CAREFUL IF YOU TAKE IT. -[employer] IS THE HOME CARE COMPANY THAT WILL PROVIDE HOME THERAPY FOR YOU. THEY WILL CONTACT YOU WITHIN 24-48 HOURS OF DISCHARGE TO SET UP AN INITIAL VISIT DAY. IF YOU DO NOT HEAR FROM THEM BY WEDNESDAY, FEEL FREE TO CALL THEM: [phone]. -IF YOU HAVE ANY FURTHER CONCERNS OR QUESTIONS, CONTACT DR. HERNANDEZ'S OFFICE. Referrals: Randal Boo MD [Staff Provider] - Sandeep Hernandez MD [Staff Provider] -
--- NOTE | 2018-07-21 04:58 | DS ---
ADMISSION DIAGNOSIS: Syncope. DISCHARGE DIAGNOSES: 1. Syncope. 2. Anxiety. 3. Hypertension. 4. Type 2 diabetes. HOSPITAL COURSE: This is an 87-year-old white female with history of syncope, and the patient was found to be on the floor by the family member, brought into emergency room. The patient was placed on neuro check, fall/seizure precaution, and blood pressure anxiety medication. The patient did well. She is feeling better. She is for discharge. PHYSICAL EXAMINATION: VITAL SIGNS: Blood pressure 107/71, pulse 65, respiratory rate 20, and temperature 98.2. LUNGS: Clear. CVS: S1 and S2 regular. ABDOMEN: Soft. PLAN: Discharge the patient. Outpatient followup with our PMD. Monitor the patient. Sandeep Hernandez MD
== END 2018-07-20 17:49 | disposition home health service (06) | DRG 149 ==
LOC: C.ER 14:30 → C.9E 18:22 → C.6T 20:29
PROVIDERS: ADMIT Internal Medicine; ATTEND Internal Medicine
DX: R42 Dizziness and giddiness (principal); S01.01XA Laceration without foreign body of scalp, initial encounter; F32.9 Major depressive disorder, single episode, unspecified; E86.0 Dehydration; F41.9 Anxiety disorder, unspecified; I10 Essential (primary) hypertension; E11.9 Type 2 diabetes mellitus without complications; E78.5 Hyperlipidemia, unspecified; I65.29 Occlusion and stenosis of unspecified carotid artery; W19.XXXA Unspecified fall, initial encounter; Y92.000 Kitchen of unspecified non-institutional (private) residence as the place of occurrence of the external cause

== ENCOUNTER 2018-07-22 10:00 | Observation (INO) | payer MEDICARE ==
--- NOTE | 2018-07-22 10:49 | C.PDOC ---
History Of Present Illness 87 y/o female with history of Type 2 DM and HTN brought to ED by EMS with c/o weakness and pain 5/10 s/p fall on 07/15. Patient seen at ED on 07/15 and admitted for syncope and had sustained laceration to back of head. Patient had multiple studies then and CT scan within normal limits. Patient is cooperative and answering questions but is not a good historian. No other physical complaints at this time. Time Seen by Provider: 07/22/18 10:24 Chief Complaint (Nursing): Medical Clearance History Per: Patient History/Exam Limitations: no limitations Onset/Duration Of Symptoms: Days Current Symptoms Are (Timing): Still Present Past Medical History Reviewed: Historical Data, Nursing Documentation, Vital Signs Vital Signs: Last Vital Signs Temp 98 F 07/22/18 10:10 Pulse 87 07/22/18 10:10 Resp 18 07/22/18 10:10 BP 137/84 07/22/18 10:10 Pulse Ox 98 07/22/18 10:10 - Medical History PMH: Diabetes, HTN, Hypercholesterolemia Surgical History: No Surg Hx Family History: States: No Known Family Hx - Social History Hx Alcohol Use: No Hx Substance Use: No Review Of Systems Gastrointestinal: Positive for: Abdominal Pain. Negative for: Vomiting, Diarrhea Musculoskeletal: Positive for: Neck Pain Neurological: Positive for: Weakness. Negative for: Headache Physical Exam - Physical Exam Appears: Non-toxic, No Acute Distress Skin: Warm, Dry, No Rash Head: Atraumatic, Normacephalic Eye(s): bilateral: Normal Inspection Oral Mucosa: Moist Neck: Other (Neck brace in place s/p prior fall ) Cardiovascular: Rhythm Regular Respiratory: Normal Breath Sounds, No Rales, No Rhonchi, No Wheezing Gastrointestinal/Abdominal: Soft, No Tenderness, No Guarding, No Rebound Back: No CVA Tenderness Extremity: Capillary Refill (<2 seconds), No Deformity, Other (+1 pitting edema bilaterally on lower extremities) Neurological/Psych: Oriented x3, Normal Speech ED Course And Treatment O2 Sat by Pulse Oximetry: 98 (RA) Pulse Ox Interpretation: Normal Medical Decision Making Medical Decision Making: D/w Dr. Hernandez states patient insisted to be discharged yesterday from hospital, he wanted to send her to Rehab because felt she was unable to help herself at home. Patient is now at ED because she wants help unable to handle herself alone at home. Patient admitted to Dr. Hernandez service Disposition Discussed With .: Sandeep Hernandez Counseled Patient/Family Regarding: Diagnosis - Disposition Disposition: HOSPITALIZED Disposition Time: 11:09 Condition: GUARDED Instructions: Weakness (ED) Forms: [facility] (Tanzanian) - POA Present On Arrival: None - Clinical Impression Clinical Impression: Weakness generalized - Scribe Statement The provider has reviewed the documentation as recorded by the Scribe Kings Duncan All medical record entries made by the Scribe were at my direction and personally dictated by me. I have reviewed the chart and agree that the record accurately reflects my personal performance of the history, physical exam, medical decision making, and the department course for this patient. I have also personally directed, reviewed, and agree with the discharge instructions and disposition. Decision To Admit - Pt Status Changed To: Hospital Disposition Of: Observation - . Bed Request Type: Regular Admitting Physician: Sandeep Hernandez Patient Diagnosis: Weakness generalized
[2018-07-22 12:31] VITALS: RESP 20; TEMP 98.1
[2018-07-22] MEDS ORDERED: Glucagon Recombinant 1 mg Inj IM PRN (13:10)
[2018-07-22] MEDS ORDERED: Dextrose 50% SYRINGE Inj (50 ml) IV PRN (13:10)
[2018-07-22 13:59] LABS: BASO % 0.2 % (0.0-2.0); EOS % 0.2 % (0.0-4.0); HEMOGLOBIN 13.1 g/dL (11.0-16.0); LYMPH # 1.4 K/uL (1.0-4.3); LYMPH % 16.2 % (20.0-40.0); MEAN CELL VOLUME 92.6 fL (81.0-99.0); MEAN CORPUSCULAR HGB CONC 33.4 g/dL (33.0-37.0); MEAN PLATELET VOLUME 7.2 fL (7.2-11.7); MONO # 0.7 K/uL (0.0-0.8); MONO % 7.9 % (0.0-10.0); NEUT # 6.5 K/uL (1.8-7.0); NEUT % 75.5 % (50.0-75.0); NRBC % 0.1 % (0.0-2.0); RBC 4.25 Mil/uL (3.80-5.20); RED CELL DISTRIBUTION WIDTH 14.2 % (11.5-14.5); WHITE BLOOD COUNT 8.6 K/uL (4.8-10.8)
[2018-07-22 14:28] LABS: BLOOD UREA NITROGEN 18 mg/dL (7-17); CALCIUM 9.8 mg/dl (8.6-10.4); GFR NON-AFRICAN AMERICAN > 60
[2018-07-22 16:22] VITALS: BP 153/82; PULSE 106
[2018-07-22 16:50] VITALS: O2SAT 98
--- NOTE | 2018-07-22 17:28 | CP.PCM.PN ---
Subjective - Date & Time of Evaluation Date of Evaluation: 07/22/18 Time of Evaluation: 15:00 - Subjective Subjective: Patient seen today [facility], denies any headache, chest pain, sob, c/o dizziness upon standing up labs ordered and reviewed- all WNL vss- stable Objective - Vital Signs/Intake and Output Vital Signs (last 24 hours): Temp Pulse Resp BP Pulse Ox 98.1 F 106 H 20 153/82 H 98 07/22/18 16:00 07/22/18 16:00 07/22/18 16:00 07/22/18 16:00 07/22/18 16:44 - Medications Medications: Current Medications Alprazolam (Xanax) 1 mg PO BID [facility] Ascorbic Acid (Vitamin C 500 Mg Tab) 1,000 mg PO DAILY [facility] Calcium Carbonate (Oscal) 500 mg PO DAILY [facility] Dextrose (Dextrose 50% Inj) 0 ml IV STAT PRN; Protocol PRN Reason: Hypoglycemia Protocol Dextrose (Glutose 15) 0 gm PO ONCE PRN; Protocol PRN Reason: Hypoglycemia Protocol Enoxaparin Sodium (Lovenox) 40 mg SC DAILY [facility] Folic Acid (Folic Acid) 1 mg PO DAILY MIGUEL Glucagon (Glucagen Diagnostic Kit) 0 mg IM STAT PRN; Protocol PRN Reason: Hypoglycemia Protocol Dextrose (Dextrose 5% In Water 1000 Ml) 1,000 mls @ 0 mls/hr IV .Q0M PRN; Pro tocol PRN Reason: Hypoglycemia Protocol Influenza Virus Vaccine (Fluzone Quad [id number]) 60 mcg IM .ONCE ONE Stop: 07/23/18 10:01 Insulin Aspart (Novolog) 0 unit SC ACHS [facility]; Protocol Meclizine HCl (Antivert) 12.5 mg PO Q8 PRN PRN Reason: Dizziness Metformin HCl (Glucophage) 500 mg PO BIDCC [facility] Pneumococcal Polyvalent Vaccine (Pneumovax 23 Vaccine) 0.5 ml IM .ONCE ONE Stop: 07/23/18 10:01 Rosuvastatin Calcium (Crestor) 5 mg PO HS [facility] - Labs Labs: 07/22/18 13:54 07/22/18 13:54 Assessment and Plan - Assessment and Plan (Free Text) Assessment: 87 y/o female with history of Type 2 DM and HTN brought to ED by EMS with c/o weakness and pain. Patient discharged from [facility] 07/20/18 and re admitted with generalized weakness and pain and unable to care at home lab done today and results reviewed - WNL , hgbaic noted 6.2 so we will d/c all antidiabtics and monitor BS closely d/w patient regarding rehab and patient in agreement patient accepted at [facility] for rehab D/w Dr. Hernandez, cleared for discharge to [facility] today and Dr. Hernandez will follow the patient at [facility] PATIENT NEEDS TO F/U WITH DR. EMA TENORIO AFTER DISCHARGE FROM [facility] FO F/U VIST AND REPEAT IMAGING ( information sent to rehab )
[2018-07-22] MEDS: (Novolog) Insulin Aspart, Recombinant 100 u/ml 10 ml vial SC SCH ×2 (17:44→21:17)
--- NOTE | 2018-07-22 21:02 | CP.PCM.HP ---
Past Patient History - Infectious Disease Hx of Infectious Diseases: None - Past Medical History & Family History Past Medical History?: Yes - Past Social History Smoking Status: Never Smoked - CARDIAC Hx Hypercholesterolemia: Yes Hx Hypertension: Yes - PULMONARY Hx Respiratory Disorders: No - NEUROLOGICAL Hx Neurological Disorder: No - HEENT Hx HEENT Problems: Yes Hx Cataracts: Yes - RENAL Hx Chronic Kidney Disease: No - ENDOCRINE/METABOLIC Hx Diabetes Mellitus Type 2: Yes - HEMATOLOGICAL/ONCOLOGICAL Hx Blood Disorders: No - INTEGUMENTARY Hx Dermatological Problems: No - MUSCULOSKELETAL/RHEUMATOLOGICAL Hx Falls: Yes - GASTROINTESTINAL Hx Gastrointestinal Disorders: No - GENITOURINARY/GYNECOLOGICAL Hx Genitourinary Disorders: No - PSYCHIATRIC Hx Substance Use: No - SURGICAL HISTORY Hx Surgeries: No Other/Comment: catarats surgery - ANESTHESIA Hx Anesthesia: Yes Hx Anesthesia Reactions: No Hx Malignant Hyperthermia: No Meds Home Medications: Home Medication List Medication Instructions Recorded Confirmed Type Acetaminophen [Tylenol 325mg tab] 650 mg PO Q6 PRN #30 tab 07/22/18 Rx Pantoprazole Sodium [Protonix] 40 mg PO DAILY #20 ect 07/22/18 Rx RX: Ascorbic Acid [Vitamin C 500 1,000 mg PO DAILY tab 07/22/18 Rx mg Tab] RX: Calcium Carbonate [Oscal] 500 mg PO DAILY tab 07/22/18 Rx RX: Folic Acid 1 mg PO DAILY tab 07/22/18 Rx RX: Insulin Aspart, Recombinant 0 unit SC ACHS unit 07/22/18 Rx [Novolog] RX: Meclizine [Antivert] 12.5 mg PO Q8 PRN tab 07/22/18 Rx RX: Rosuvastatin Calcium [Crestor] 5 mg PO HS tab 07/22/18 Rx Allergies/Adverse Reactions: Allergies Allergy/AdvReac Type Severity Reaction Status Date / Time No Known Allergies Allergy Verified 07/15/18 17:24 Results - Vital Signs Recent Vital Signs: Last Vital Signs Temp 98.1 F 07/22/18 16:00 Pulse 106 H 07/22/18 16:00 Resp 20 07/22/18 16:00 BP 153/82 H 07/22/18 16:00 Pulse Ox 98 07/22/18 16:44 - Labs Result Diagrams: 07/22/18 13:54 07/22/18 13:54 Labs: Laboratory Results - last 24 hr 07/22/18 07/22/18 07/22/18 13:54 13:54 13:54 WBC 8.6 RBC 4.25 Hgb 13.1 Hct 39.3 MCV 92.6 MCH 31.0 MCHC 33.4 RDW 14.2 Plt Count 252 MPV 7.2 Neut % (Auto) 75.5 H Lymph % (Auto) 16.2 L [place] % (Auto) 7.9 Eos % (Auto) 0.2 Baso % (Auto) 0.2 Neut # (Auto) 6.5 Lymph # (Auto) 1.4 [place]ne # (Auto) 0.7 Eos # (Auto) 0.0 Baso # (Auto) 0.0 Sodium 137 Potassium 4.5 Chloride 99 Carbon Dioxide 27 Anion Gap 16 BUN 18 H Creatinine 0.6 L Est GFR ( Amer) > 60 Est GFR (Non-Af Amer) > 60 POC Glucose (mg/dL) Random Glucose 78 Hemoglobin A1c 6.2 Calcium 9.8 Magnesium 1.9 07/22/18 17:42 WBC RBC Hgb Hct MCV MCH MCHC RDW Plt Count MPV Neut % (Auto) Lymph % (Auto) [place] % (Auto) Eos % (Auto) Baso % (Auto) Neut # (Auto) Lymph # (Auto) [place] # (Auto) Eos # (Auto) Baso # (Auto) Sodium Potassium Chloride Carbon Dioxide Anion Gap BUN Creatinine Est GFR ( Amer) Est GFR (Non-Af Amer) POC Glucose (mg/dL) 131 H Random Glucose Hemoglobin A1c Calcium Magnesium
[2018-07-23] MEDS ORDERED: Pneumococcal 23-Valent Vaccine IM ONE (10:00)
[2018-07-23] MEDS ORDERED: Influenza Vaccine 60 MCG/0.5 ML SYR (3 yr & up) IM ONE (10:00)
[2018-07-23] MEDS ORDERED: Enoxaparin 40 mg Syringe SC SCH (10:00)
--- NOTE | 2018-07-25 06:16 | HP ---
CHIEF COMPLAINT: Dizziness, difficulty walking. HISTORY OF PRESENT ILLNESS: This is an 87-year-old white female with a history of diabetes, hypertension, hyperlipidemia, osteoarthritis who was recently discharged from [facility] day before yesterday on 07/20/2018. At that time, the patient was offered to be placed in a subacute rehab facility because of difficulty walking, history of fall, and unsteady gait. The patient refused and she went home. The patient came back as she could not take care of her activities of daily living. She has been having difficulty walking, weak, not able to feed herself. She denies any fever or chills either. She denies any chest pain or palpitation. She is anxious. She is stressed. She denies any history of seizure-like activity. She denies any movement dysfunction. She denies any abdominal pain, nausea, vomiting, or diarrhea. She denies any polyuria, polydipsia, or polyphagia. She denies any history of hematuria or pyuria. She denies any sneezing, itchy eyes, or itchy nose. She denies any skin rash. PAST MEDICAL HISTORY: Diabetes, hypertension, hyperlipidemia, osteoarthritis, and generalized anxiety disorder. SOCIAL HISTORY: She is a nonsmoker, non-EtOH user. ALLERGIES: UNKNOWN. PAST MEDICAL HISTORY: As above. PAST SURGICAL HISTORY: None. CURRENT MEDICATIONS: At home, she is taking Tofranil, vitamin D3, Xanax, Crestor, Antivert, folic acid, [place], vitamin C, Protonix, Tylenol. PHYSICAL EXAMINATION: GENERAL: This is an elderly female who is weak. VITAL SIGNS: Blood pressure 153/82, pulse rate 106, respiratory rate 20, and temperature 98.1. SKIN: Senile turgor. No bruising. No purpura. No petechiae. HEENT: The patient has trauma to the back upper scalp. Normocephalic. Pupils equally reactive to light and accommodation. NECK: Supple. Flat neck veins. No JVD. No lymph node. No thyromegaly. CHEST WALL: Bilateral symmetrical expansion. LUNGS: Bilaterally clear. No rales. No rhonchi. CARDIOVASCULAR SYSTEM: S1 and S2 are regular. No heave. No thrill. ABDOMEN: Soft and nontender. Bowel sounds are positive. RECTAL: Refused. PELVIS: Refused. EXTREMITIES: No clubbing, cyanosis, or edema. CENTRAL NERVOUS SYSTEMS: Awake, alert, and oriented x3. She is forgetful. ASSESSMENT: 1. Weakness, difficulty walking, history of fall, and syncope. 2. Hypertension. 3. Anxiety. 4. Type 2 diabetes. PLAN: Medical management. Monitor the patient. Sandeep Hernandez MD
== END 2018-07-22 23:00 | disposition home or self-care (01) ==
LOC: C.ER 10:00 → C.9E 11:10 → C.3T 11:43
PROVIDERS: ADMIT Internal Medicine; ATTEND Internal Medicine
DX: R53.1 Weakness (principal); R55 Syncope and collapse; R26.2 Difficulty in walking, not elsewhere classified; Z91.81 History of falling; E78.00 Pure hypercholesterolemia, unspecified; E11.9 Type 2 diabetes mellitus without complications; F41.1 Generalized anxiety disorder; I10 Essential (primary) hypertension
CPT/HCPCS: 36415; 80048; 82948; 83036; 83735; 85025; 97116; 97162; 99283; G0378; G8978; G8979

== ENCOUNTER 2018-09-02 19:03 | Inpatient (IN) | payer MEDICARE ==
--- NOTE | 2018-09-02 19:14 | C.PDOC ---
History Of Present Illness As per daughter patient was in the living room around 6 pm in her recliner and while talking became confused, speaking gibberish and not recognizing anyone. They walked/carried her to bed to rest. After a few minutes, they heard a noise and found the patient on the floor , face down. Still confused, weak, slurred speach. Time Seen by Provider: 09/02/18 19:14 Chief Complaint (Nursing): Altered Mental Status Past Medical History Reviewed: Historical Data, Nursing Documentation, Vital Signs - Medical History PMH: Dementia, Diabetes, HTN, Hypercholesterolemia Denies: Chronic Kidney Disease Family History: States: No Known Family Hx - Social History Hx Alcohol Use: No Hx Substance Use: No Review Of Systems Review Of Systems: ROS cannot be obtained secondary to pt's inabilty to answer questions. Physical Exam - Physical Exam Appears: Non-toxic Skin: Warm, Dry Head: Normacephalic Eye(s): bilateral: Normal Inspection Nose: Tenderness, No Septal Hematoma, Other (echiomosis) Oral Mucosa: Moist Tongue: Normal Appearing Lips: Normal Appearing Neck: Trachea Midline, No Midline Cervical Tenderness, No Paracervical Tenderness, Supple Chest: Symmetrical Cardiovascular: Rhythm Regular Respiratory: No Rales, Rhonchi, No Wheezing Gastrointestinal/Abdominal: Soft, No Tenderness, No Distention Back: Normal Inspection, No CVA Tenderness Extremity: Normal ROM, No Pedal Edema Extremity: Bilateral: No Pedal Edema, Normal Color And Temperature Pulses: Left Dorsalis Pedis: Normal, Right Dorsalis Pedis: Normal Neurological/Psych: Slow To Respond With Command, Dysarthria Gait: Unable To Assess ED Course And Treatment - Laboratory Results Result Diagrams: 09/02/18 19:52 09/02/18 21:06 ECG: Interpreted By Me, Viewed By Ms ECG Rhythm: Sinus Rhythm (84), Nonspecific Changes O2 Sat by Pulse Oximetry: 98 Pulse Ox Interpretation: Normal - Radiology CXR: Interpreted by Me, Viewed By Me CXR Interpretation: No: Infiltrates, Fracture, Pnemothorax - CT Scan/US CT head Other Rad Studies (CT/US): Read By Radiologist, Radiology Report Reviewed CT/US Interpretation: CT of the head. Clinical history: altered mental status. Protocol: Multiple axial CT images obtained with 5 mm slice thickness were obtained through the head without administration of contrast. 1645 mGy-cm. Comparison: None. Findings: The ventricles and sulci are symmetric but prominent in size bilaterally. There are periventricular areas of low attenuation throughout the deep white matter. There is no evidence of acute hemorrhage or infarct. There is no midline shift, mass effect, or extra-axial fluid collection. The osseous structures are unremarkable. The mastoid air cells are clear. Left sphenoid sinusitis. Impression: No acute hemorrhage or infarct. Findings are consistent with moderate age-related atrophy and chronic small vessel ischemic disease. If there is continued clinical concern, MRI should be considered. . Electronically signed on Sep 02, 2018 8:18:11 PM EST by: aTriq Silva M.D., KIKE Certified By ABR & [employer]. Fellowship Trained MRI and CT Specialist. 8:47 pm speach improving. moves all extremities CT C spine Other Rad Studies (CT/US): Read By Radiologist, Radiology Report Reviewed CT/US Interpretation: CT CERVICAL SPINE. Indications: Neck injury, status post fall. Technique: Volumetric acquisition of the cervical spine without intravenous contrast. Multiplanar reformatted images.total DLP equaled 408. Findings:there is an air-fluid level in the sphenoid sinus.there is good AP alignment of the cervical vertebral bodies. there is a grade 1 anterolisthesis of C7 relative to T1. The vertebral body statures are preserved. There is disc space narrowing at the C6-C7 level with posterior spurs.there is some degenerative disc space narrowing at all cervical levels with the exception of the C4-C5 level. There is no cervical spine fracture or evidence of central canal stenosis. The prevertebral soft tissues are unremarkable. The pulmonary apices are well-aerated. Impression: Grade 1 anterolisthesis of C7 relative to T1. Multilevel disc degeneration. Bony fracture not identified. . Electronically signed on Sep 02, 2018 9:46:28 PM EST by: Guerrero Lugo M.D., Certified by ABR. CT maxillofacial Other Rad Studies (CT/US): Read By Radiologist, Radiology Report Reviewed CT/US Interpretation: EXAM: CT Maxillofacial without Intravenous Contrast. CLINICAL HISTORY: FACIAL INJURY. S/P; FALL. TECHNIQUE: Axial computed tomography images of the face without intravenous contrast. Sagittal and coronal reformatted images were generated. 855 mGy-cm. CONTRAST: Without. COMPARISON: None provided. FINDINGS: BONES: A facial bone fracture is not identified. SOFT TISSUES: The soft tissues are unremarkable. SINUSES: sphenoid sinusitis. ORBITS: The orbits are normal. No retrobulbar hematoma or mass. IMPRESSION: A facial bone fracture is not identified.sphenoid sinusitis. . Electronically signed on Sep 02, 2018 9:50:32 PM EST by: Guerrero Lugo M.D., Certified by ABR CTA neck Other Rad Studies (CT/US): Read By Radiologist, Radiology Report Reviewed CT/US Interpretation: EXAM: CT Head with Intravenous Contrast. CLINICAL HI STORY: AMS. APHASIA. H/O CVA. S/P FALL. TECHNIQUE: Axial computed tomography images of the head/brain with intravenous contrast. 0626 mGy-cm. CONTRAST: With; VISIPAQUE 320 100CC. COMPARISON: None provided. FINDINGS: BRAIN. The A1, A2, M1, M2, P1, P 2 segments of the anterior, middle, and posterior cerebral arteries respectively are visualized and are patent. An aneurysm is not identifi ed. VENTRICLES: No hydrocephalus. ORBITS: The orbits are unremarkable. SINUSES AND MASTOIDS: The paranasal sinuses and mastoid air cells are clear. BONES: No fracture. MISCELLANEOUS: No common carotid or internal carotid artery stenosis. Bilateral small calcifications at carotid bifurcation. IMPRESSION: 1. No common carotid or internal carotid artery stenosis. 2. Bilateral small calcifications at carotid bifurcation. 3. The A1, A2, M1, M2, P1, P 2 segments of the anterior, middle, and posterior cerebral arteries respectively are visualized and are patent. An aneurysm is not identified. . Electronically signed on Sep 02, 2018 10:16:26 PM EST by: Guerrero Lugo M.D., Certified by ABR. Progress Note: 7:[address] stokes. will await ct results Critical Care Time - Critical Care Note Total Time (in mins): 30 Documented critical care: time excludes all time spent performing seperately billable procedures. NIHSS Stroke Scale - Date/Time Evaluation Performed Date Performed: 09/02/18 Time Performed: 19:06 When Was NIHSS Performed: Baseline - How Severe is the Stoke Level of Consciousness: 0=Alert LOC to Questions: 0=Both comments correct LOC to commands: 1=Obeys one correctly Best Gaze: 0=Normal Visual: 0=No visual loss Facial: 0=Normal Motor Arm - Left: 0=No drift Motor Arm - Right: 0=No drift Motor Leg - Left: 1=Drift before 5 sec Motor Leg - Right: 1=Drift before 5 sec Limb Ataxia: 0=Absent Sensory: 0=Normal Best Language: 0=No aphasia Dysarthia: 1=Mild to moderate slurring Extinction & Inattention (Neglect): 0=Normal, no object Score: 4 rTPA Inclusion/Exclusion - Refusal of Treatment Patient Refused Treatment: No - Inclusion Criteria for Altepase Patient is 18 years or Older: Yes Clinical DX Ischemic Stroke Cause Neurological Deficit: Yes Time of Onset Established Less Than 270 Mins Before TX Begin: Yes Risk/Benefit Discussed With Patient/Family Member Present: Yes - Exclusion Criteria for Altepase Uncontrolled Hypertension at Time of TX (SBP>185 or DBP>110): No Less Than 3 Months Had a Recent: Head Trauma ( x 2) Active Internal Bleeding: No Known Bleeding Diathesis: No Evidence of an Intracranial Hemorrhage: No Evidence Major Acute Infarct w/ Signs Greater Than 1/3 MCA: No Suspicion of Subarachnoid Bleed on PreTX Eval(CT: neg bleed): No - Warning to TPA With Conditions Following Conditions Weighed Against Anticipated Benefit: Yes Condition: Rapid Improvement, Age Greater Than 75 years Additional Condition (For 3-4.5 Hour Window): Age Greater Than 80 Disposition Discussed With : Sandeep Hernandez Comment: accepted the pt on his service and took over the care at 8:49 PM Doctor Will See Patient In The: Hospital Counseled Patient/Family Regarding: Studies Performed, Diagnosis - Disposition Disposition: HOSPITALIZED Disposition Time: 19:14 Condition: GUARDED - POA Present On Arrival: Falls Or Trauma, Poor Glycemic Control - Clinical Impression Clinical Impression: CVA (cerebral vascular accident), Fall, Facial contusion Decision To Admit - Pt Status Changed To: Hospital Disposition Of: Inpatient - Admit Certification Admit to Inpatient:: After my assessment, the patient will require hospitalization for at least two midnights. This is because of the severity of symptoms shown, intensity of services needed, and/or the medical risk in this patient being treated as an outpatient. - InPatient: Physician Admission Certification:: After my assessment, the patient will require hospitalization for at least two midnights. This is because of the severity of symptoms shown, intensity of services needed, and/or the medical risk in this patient being treated as an outpatient. - . Bed Request Type: Telemetry Admitting Physician: Sandeep Hernandez Patient Diagnosis: CVA (cerebral vascular accident), Fall, Facial contusion
[2018-09-02] MEDS ORDERED: Iodixanol 320 MG/ML 100 ML BOTTLE IV ONE (19:47)
[2018-09-02 19:57] LABS: BASO % 0.3 % (0.0-2.0); HEMOGLOBIN 13.7 g/dL (11.0-16.0); LYMPH % 13.9 % (20.0-40.0); MEAN CELL VOLUME 91.2 fL (81.0-99.0); MEAN CORPUSCULAR HEMOGLOBIN 30.2 pg (27.0-31.0); MEAN CORPUSCULAR HGB CONC 33.1 g/dL (33.0-37.0); MEAN PLATELET VOLUME 7.4 fL (7.2-11.7); MONO # 0.4 K/uL (0.0-0.8); MONO % 5.3 % (0.0-10.0); NEUT # 5.7 K/uL (1.8-7.0); NEUT % 80.5 % (50.0-75.0); NRBC % 0.1 % (0.0-2.0); RBC 4.53 Mil/uL (3.80-5.20); RED CELL DISTRIBUTION WIDTH 13.9 % (11.5-14.5); WHITE BLOOD COUNT 7.1 K/uL (4.8-10.8)
[2018-09-02 20:55] LABS: ABG ALLEN TEST POS; ARTERIAL BLOOD GAS HCO3 17.3 mmol/L (21-28); ARTERIAL BLOOD GAS O2 SAT 98.6 % (95-98); ARTERIAL BLOOD GAS PCO2 17 mm/Hg (35-45); ARTERIAL BLOOD GAS PH 7.44 (7.35-7.45); ARTERIAL BLOOD GAS PO2 162 mm/Hg (80-100)
[2018-09-02 21:27] LABS: ALB/GLOB RATIO 1.5 (1.0-2.1); ALBUMIN 4.3 g/dL (3.5-5.0); ALT/SGPT 28 U/L (9-52); AST/SGOT 28 U/L (14-36); BLOOD UREA NITROGEN 15 mg/dL (7-17); CALCIUM 8.9 mg/dl (8.6-10.4); GFR NON-AFRICAN AMERICAN > 60; HDL CHOLESTEROL 61 mg/dL (30-70)
[2018-09-02 21:28] LABS: INR 1.2; PROTHROMBIN TIME 12.9 SECONDS (9.7-12.2)
[2018-09-02 21:38] LABS: LDL CHOLESTEROL 96 mg/dL (0-129)
[2018-09-02 22:17] LABS: HDL CHOLESTEROL 60 mg/dL (30-70)
[2018-09-02 22:28] LABS: LDL CHOLESTEROL 96 mg/dL (0-129)
[2018-09-02] MEDS: Sodium Chloride 0.9% 1,000 ML IV SCH (22:34)
[2018-09-03] MEDS ORDERED: Potassium Chloride 20 mEq/15 ml LIQ UD PO ONE (04:15)
[2018-09-03] MEDS: Sodium Chloride 0.9% 1,000 ML IV SCH ×2 (05:54→16:00)
--- NOTE | 2018-09-03 07:45 | CT ---
Date of service: 09/02/2018 PROCEDURE: CT HEAD WITHOUT CONTRAST. HISTORY: Code Stroke COMPARISON: 07/15/2018 TECHNIQUE: Axial computed tomography images were obtained through the head/brain without intravenous contrast. Radiation dose: Total exam DLP = 1645.26 mGy-cm. This CT exam was performed using one or more of the following dose reduction techniques: Automated exposure control, adjustment of the mA and/or kV according to patient size, and/or use of iterative reconstruction technique. FINDINGS: HEMORRHAGE: No intracranial hemorrhage. BRAIN: No mass effect or edema. Scattered focal lucencies in the subcortical and periventricular white matter suggestive for chronic microvascular ischemic change. Right basal ganglia lacunar infarcts. Focal lucency within the right external capsule also suggestive for lacunar infarct. Diffuse generalized parenchymal atrophy. VENTRICLES: Prominent. CALVARIUM: Deformity of the left nasal bone, possibly chronic. PARANASAL SINUSES: Mucosal thickening of the sphenoid sinus. MASTOID AIR CELLS: Unremarkable as visualized. No inflammatory changes. OTHER FINDINGS: Intracranial arterial calcifications. Limited study secondary to streak and motion artifact. IMPRESSION: Diffuse generalized parenchymal atrophy. Chronic microvascular ischemic change. Right basal ganglia lacunar infarcts. If symptoms persists, consider correlation with MRI. A preliminary report was generated at 8:18 p.m. on 09/02/[address] Tariq Silva from [employer].
--- NOTE | 2018-09-03 07:56 | RAD ---
Chest x-ray single frontal view HISTORY: Code stroke. COMPARISON: 05/18/2014 FINDINGS: Mild venous congestion. Patchy increased markings at the left lung base with small pleural effusion. Tortuous ectatic aorta. Mild cardiomegaly. Degenerative changes in the spine and shoulders. IMPRESSION: Mild venous congestion. Patchy increased markings at the left lung base with small pleural effusion. Tortuous ectatic aorta. Mild cardiomegaly.
--- NOTE | 2018-09-03 09:53 | CT ---
CT cervical spine History: Fall. Comparison: None available. Technique: Multiple contiguous axial images were performed through the cervical spine without the use of intravenous contrast. Findings: Incidentally noted on the overedger view is a suggestion of a bowing deformity of the mid left humerus. Clinical correlation. Mucosal thickening of the sphenoid sinus. Mild anterolisthesis of C7 on T1. Reversal of the normal cervical lordosis. Mild anterolisthesis of C4 on C5. Anterior osteophytosis at the C2-3, C5-6, and C6-7 levels. Prominent posterior disc osteophyte complex at the C6-7 level. Narrowing of the atlantodental interval with sclerosis and bony hypertrophy. Multilevel uncovertebral joint and facet hypertrophy. No evidence of acute displaced fracture or dislocation. No significant prevertebral soft tissue swelling. Impression: Grade 1 anterolisthesis of C7 on T1. Degenerative changes. If pain persists, consider correlation with MRI. Incidentally noted on the overedger view is a suggestion of a bowing deformity of the mid left humerus. Clinical correlation. A preliminary report was generated at 9:46 p.m. on 09/02/[address] Guerrero Lugo from [facility].
--- NOTE | 2018-09-03 09:59 | CT ---
CT maxillofacial History: Injury. Comparison: None available. Technique: Multiple contiguous axial images were performed through the maxillofacial region without the use of intravenous contrast. Subsequently, sagittal coronal reformatted images were obtained. This CT exam was performed using one or more of the following dose reduction techniques: Automated exposure control, adjustment of the mA and/or kV according to patient size, and/or use of iterative reconstruction technique. Findings: Bilateral maxillary sinuses are preserved. Moderate mucosal thickening of the sphenoid sinus. Ethmoid air cells and frontal sinus are preserved. Bilateral mastoid air cells are preserved. Please see separate report for evaluation of the cervical spine. Orbital globes are preserved. Rightward nasal septal deviation. Moderate mucosal thickening and hypertrophy of the inferior nasal turbinates. Impression: Moderate mucosal thickening of the sphenoid sinus. A preliminary report was generated at 9:50 p.m. on 09/02/[address] Guerrero Lugo from [facility].
[2018-09-03] MEDS: Pantoprazole 40 mg EC Tab PO SCH (10:48)
--- NOTE | 2018-09-03 16:00 | CT ---
Date of service: 09/02/2018 PROCEDURE: CT Angiography of the neck and brain with contrast HISTORY: CVA COMPARISON: None. TECHNIQUE: Contiguous axial images of the neck and brain were obtained from the level of the vertex of the skull to the superior mediastinum in the arteriographic phase of enhancement. Coronal and sagittal reformats or also generated. IV contrast dose: 100 cc Visipaque 320 Radiation dose: Total exam DLP = 626.65 mGy-cm. This CT exam was performed using one or more of the following dose reduction techniques: Automated exposure control, adjustment of the mA and/or kV according to patient size, and/or use of iterative reconstruction technique. FINDINGS: The aortic arch is widely patent despite some minor calcified atherosclerotic plaque. Common origin of the right brachiocephalic and left carotid artery. The common carotid arteries are patent throughout without evidence of occlusion significant stenosis or dissection. Minor calcified plaque changes both carotid bifurcations left slightly greater than right without significant stenosis. The internal carotid arteries including the petrous cavernous and supraclinoid segments are patent. Mild calcified plaque changes both carotid siphons. The vertebral arteries are also patent throughout left-sided which is larger in caliber/more dominant than the right. Basilar artery patent. The visualized major branches of the [id number] also patent. The distal anterior middle and posterior cerebral arteries are patent and relatively symmetric. No evidence of large aneurysm nor vascular malformation OTHER FINDINGS: Mild aortic atherosclerotic calcification or mural plaque present. IMPRESSION: Minor calcified atherosclerotic plaque changes are seen along both carotid bifurcations however no evidence of occlusion or significant stenosis. No evidence of dissection. Cerebral circulation is patent despite some mild calcified plaque carotid siphons. No evidence of large aneurysm nor vascular malformation. No evidence of occlusion or significant stenosis
--- NOTE | 2018-09-03 20:23 | CP.PCM.HP ---
Past Patient History - Infectious Disease Hx of Infectious Diseases: None - Past Medical History & Family History Past Medical History?: Yes - Past Social History Smoking Status: Never Smoked - CARDIAC Hx Hypercholesterolemia: Yes Hx Hypertension: Yes - PULMONARY Hx Respiratory Disorders: No - NEUROLOGICAL Hx Dementia: Yes - HEENT Hx HEENT Problems: Yes Hx Cataracts: Yes - RENAL Hx Chronic Kidney Disease: No - ENDOCRINE/METABOLIC Hx Diabetes Mellitus Type 2: Yes - HEMATOLOGICAL/ONCOLOGICAL Hx Blood Disorders: No - INTEGUMENTARY Hx Dermatological Problems: No - MUSCULOSKELETAL/RHEUMATOLOGICAL Hx Falls: Yes - GASTROINTESTINAL Hx Gastrointestinal Disorders: No - GENITOURINARY/GYNECOLOGICAL Hx Genitourinary Disorders: No - PSYCHIATRIC Hx Substance Use: No - SURGICAL HISTORY Hx Surgeries: No Other/Comment: catarats surgery - ANESTHESIA Hx Anesthesia: Yes Hx Anesthesia Reactions: No Hx Malignant Hyperthermia: No Meds Allergies/Adverse Reactions: Allergies Allergy/AdvReac Type Severity Reaction Status Date / Time No Known Allergies Allergy Verified 09/02/18 19:09 Results - Vital Signs Recent Vital Signs: Last Vital Signs Temp 98.4 F 09/03/18 16:02 Pulse 82 09/03/18 20:00 Resp 20 09/03/18 16:02 BP 160/85 H 09/03/18 16:02 Pulse Ox 100 09/03/18 16:02 - Labs Result Diagrams: 09/02/18 19:52 09/02/18 21:06 Labs: Laboratory Results - last 24 hr 09/02/18 09/02/18 09/02/18 19:52 20:50 21:01 PT INR APTT Puncture Site Rfa pCO2 17 L* pO2 162 H HCO3 17.3 L ABG pH 7.44 ABG Total CO2 12.0 L ABG O2 Saturation 98.6 H ABG Base Excess -9.9 L Yannick Test Pos ABG Potassium 2.3 L* A-a O2 Difference -34.0 Respiratory Index -0.2 Sodium 148.0 Chloride 124.0 H Glucose 78 Lactate 0.8 FiO2 21.0 Crit Value Called To Dr david Crit Value Called By Gm olson Crit Value Read Back Y Blood Gas Notified Time 2054 Potassium Carbon Dioxide Anion Gap BUN Creatinine Est GFR ( Amer) Est GFR (Non-Af Amer) POC Glucose (mg/dL) Random Glucose Hemoglobin A1c 6.7 H Calcium Total Bilirubin AST ALT Alkaline Phosphatase Troponin I Total Protein Albumin Globulin Albumin/Globulin Ratio Triglycerides Cholesterol LDL Cholesterol Direct HDL Cholesterol Arterial Blood Potassium 2.3 L* B-Hydroxybutyrate Blood Type A POSITIVE Antibody Screen Negative 09/02/18 09/02/18 09/02/18 21:06 21:06 22:06 PT 12.9 H INR 1.2 APTT 24 Puncture Site pCO2 pO2 HCO3 ABG pH ABG Total CO2 ABG O2 Saturation ABG Base Excess Yannick Test ABG Potassium A-a O2 Difference Respiratory Index Sodium 131 L Chloride 93 L Glucose Lactate FiO2 Crit Value Called To Crit Value Called By Crit Value Read Back Blood Gas Notified Time Potassium 3.4 L Carbon Dioxide 26 Anion Gap 15 BUN 15 Creatinine 0.5 L Est GFR ( Amer) > 60 Est GFR (Non-Af Amer) > 60 POC Glucose (mg/dL) Random Glucose 170 H Hemoglobin A1c Calcium 8.9 Total Bilirubin 0.7 AST 28 ALT 28 Alkaline Phosphatase 98 Troponin I < 0.0120 Total Protein 7.2 Albumin 4.3 Globulin 2.9 Albumin/Globulin Ratio 1.5 Triglycerides 63 68 Cholesterol 171 175 LDL Cholesterol Direct 96 96 HDL Cholesterol 61 60 Arterial Blood Potassium B-Hydroxybutyrate 0.35 H Blood Type Antibody Screen 09/03/18 09/03/18 09/03/18 06:15 11:53 17:22 PT INR APTT Puncture Site pCO2 pO2 HCO3 ABG pH ABG Total CO2 ABG O2 Saturation ABG Base Excess Yannick Test ABG Potassium A-a O2 Difference Respiratory Index Sodium Chloride Glucose Lactate FiO2 Crit Value Called To Crit Value Called By Crit Value Read Back Blood Gas Notified Time Potassium Carbon Dioxide Anion Gap BUN Creatinine Est GFR ( Amer) Est GFR (Non-Af Amer) POC Glucose (mg/dL) 93 118 H 138 H Random Glucose Hemoglobin A1c Calcium Total Bilirubin AST ALT Alkaline Phosphatase Troponin I Total Protein Albumin Globulin Albumin/Globulin Ratio Triglycerides Cholesterol LDL Cholesterol Direct HDL Cholesterol Arterial Blood Potassium B-Hydroxybutyrate Blood Type Antibody Screen
--- NOTE | 2018-09-03 20:26 | CARD ---
APPROVED REPORT Date of service: 09/03/2018 EXAM: Two-dimensional and M-mode echocardiogram with Doppler and color Doppler. Other Information Technically limited study due to body habitus.body habitus. INDICATION CVA/TIA Dizziness and Vertigo 2D DIMENSIONS LVEF (%)60.0 (>50%)LVEF (Kumar's)55 % M-Mode DIMENSIONS Left Atrium (MM)2.81 (2.5-4.0cm)IVSd1.41 (0.7-1.1cm) Aortic Root2.62 (2.2-3.7cm)LVDd5.66 (4.0-5.6cm) Aortic Cusp Exc.1.41 (1.5-2.0cm)PWd1.37 (0.7-1.1cm) FS (%) 37 %LVDs3.55 (2.0-3.8cm) LVEF (%)67 (>50%) Aortic Valve AoV Peak Bqvkwpea191.7cm/Emily Peak GR.5mmHg Mitral Valve MV E Yfrtkyrp80.4cm/sMV A Uhzodiim312.6cm/sE/A ratio0.7 TDI E/Lateral E'0.0E/Medial E'0.0 Tricuspid Valve TR Peak [id number]/sTR Peak Gr.[id number] LEFT VENTRICLE The left ventricle is normal size. There is mild concentric left ventricular hypertrophy. Left ventricle systolic function is normal. The Ejection Fraction is 55-60%. There is normal LV segmental wall motion. Tissue Doppler imaging reveals abnormal left ventricular diastolic dysfunction. RIGHT VENTRICLE The right ventricle is normal size. There is normal right ventricular wall thickness. The right ventricular systolic function is normal. ATRIA The left atrium size is normal. The right atrium size is normal. The interatrial septum is intact with no evidence for an atrial septal defect. AORTIC VALVE The aortic valve is normal in structure. No aortic regurgitation is present. There is no aortic valvular stenosis. There is no aortic valvular vegetation. MITRAL VALVE The mitral valve is normal in structure. There is no evidence of mitral valve prolapse. There is no mitral valve stenosis. There is no mitral valve regurgitation noted. TRICUSPID VALVE The tricuspid valve is normal in structure. There is trace tricuspid regurgitation. Right ventricular systolic pressure is estimated at less than 30 mmHg. There is no pulmonary hypertension. PULMONIC VALVE The pulmonic valve is not well visualized. There is no pulmonic valvular regurgitation. GREAT VESSELS The aortic root is normal in size. PERICARDIAL EFFUSION There is a small loculated anterior pericardial effusion. <Conclusion> Left ventricle systolic function is normal. The Ejection Fraction is 55-60%. Hypertensive heart disease. Diastolic dysfunction. No aortic regurgitation is present. There is no mitral valve regurgitation noted. There is trace tricuspid regurgitation. There is no pulmonary hypertension. There is no pulmonic valvular regurgitation.
[2018-09-04] MEDS: Sodium Chloride 0.9% 1,000 ML IV SCH (04:03)
--- NOTE | 2018-09-04 05:19 | HP ---
CHIEF COMPLIANT: Altered mental status times about few hours. HISTORY OF PRESENT ILLNESS: This is an 87-year-old white female, well known to me, with history of hypertension, anxiety, depression, and prior fall in the past, treated by me. The patient is in her usual state of health. She is ambulatory with the help of a walker and a cane. She is compliant with the diet, medication, and followup, and the patient was recently discharged home from subacute rehab facility in [place]. After discharge, the patient was seen by me, and the patient was doing fairly well. The patient, during the course of last hospitalization, was taken off her oral antidiabetic medication because of her sugar being normal. On the day of admission, she had a cough. The patient is extremely forgetful and stressed and not able to give enough information. According to the patient, she was at home, she felt being dizzy, and she had a fall. The patient is a poor historian. There is no history of sneezing, itchy eyes, or itchy nose. She has headache, neck pain, body aches, tiredness. She has joint pain, hip pain, There is no history of shortness of breath, no cough, sore throat, or runny nose. There is no history of hemiplegia or hemiparesis. She was confused, and she lost her speech. There is no history of fever or chills. PAST MEDICAL HISTORY: Hypertension, diabetes, hyperlipidemia, anxiety, depression, and recurrent fall. SOCIAL HISTORY: Nonsmoker. Non-ETOH user. She lives alone. CURRENT MEDICATIONS: Crestor, Protonix double strength, folic acid, Xanax, Tylenol, meclizine, NovoLog, Tofranil, and vitamin C. PHYSICAL EXAMINATION: GENERAL: An elderly female, not in any acute distress. She is anxious. She is worried, and she repeats her words. VITAL SIGNS: Blood pressure 160/85, pulse 82, respiratory rate 20, and temperature 98.4. SKIN: Senile turgor. No bruises. No purpura. No petechia. No ecchymosis. HEENT: Atraumatic and normocephalic. Negative pallor. Negative jaundice. Extraocular moments are intact. NECK: Supple. No JVD. No lymph nodes. No thyromegaly. No carotid bruit. CHEST: Chest wall, bilateral symmetrical expansion. No heave. No thrill. LUNGS: Bilaterally clear. No rales. No rhonchi. CARDIOVASCULAR SYSTEM: PMI not localized. S1 and S2, plus S4 positive. ABDOMEN: Soft and nontender. Bowel sounds are positive. EXTREMITIES: No clubbing, cyanosis, or edema. CENTRAL NERVOUS SYSTEM: Awake, alert, and oriented x3. Cranial nerves II through XII are normal. Power 5/5 x4. Unable to check because of risk of fall. ASSESSMENT: 1. Fall. Rule out cardiovascular accident. 2. Hypertension, poorly controlled. 3. Anxiety. 4. Borderline sugar. PLAN: Fall precaution. Seizure precaution. Neurology evaluation. . CT of cervical spine. Monitor the patient. Sandeep Hernandez MD
--- NOTE | 2018-09-04 09:28 | CP.PCM.CON ---
History of Present Illness - History of Present Illness History of Present Illness: Patient seen and evaluated Admitted for CVA Neuro eval pending ECHO: Normal EF EKG: NSR Patient still confused Recommend ASA and DVT dose of Heparin SQ if okay from neurology Past Patient History - Infectious Disease Hx of Infectious Diseases: None - Past Medical History & Family History Past Medical History?: Yes - Past Social History Smoking Status: Never Smoked - CARDIAC Hx Hypercholesterolemia: Yes Hx Hypertension: Yes - PULMONARY Hx Respiratory Disorders: No - NEUROLOGICAL Hx Dementia: Yes - HEENT Hx HEENT Problems: Yes Hx Cataracts: Yes - RENAL Hx Chronic Kidney Disease: No - ENDOCRINE/METABOLIC Hx Diabetes Mellitus Type 2: Yes - HEMATOLOGICAL/ONCOLOGICAL Hx Blood Disorders: No - INTEGUMENTARY Hx Dermatological Problems: No - MUSCULOSKELETAL/RHEUMATOLOGICAL Hx Falls: Yes - GASTROINTESTINAL Hx Gastrointestinal Disorders: No - GENITOURINARY/GYNECOLOGICAL Hx Genitourinary Disorders: No - PSYCHIATRIC Hx Substance Use: No - SURGICAL HISTORY Hx Surgeries: No Other/Comment: catarats surgery - ANESTHESIA Hx Anesthesia: Yes Hx Anesthesia Reactions: No Hx Malignant Hyperthermia: No Meds Allergies/Adverse Reactions: Allergies Allergy/AdvReac Type Severity Reaction Status Date / Time No Known Allergies Allergy Verified 09/02/18 19:09 - Medications Medications: Current Medications Acetaminophen (Tylenol 325mg Tab) 650 mg PO Q6 PRN PRN Reason: Pain, moderate (4-7) Last Admin: 09/04/18 05:48 Dose: 650 mg Alprazolam (Xanax) 0.5 mg PO BID PRN PRN Reason: Anxiety Last Admin: 09/03/18 21:43 Dose: 0.5 mg Aspirin (Ecotrin) 81 mg PO DAILY [facility] Calcium Carbonate (Oscal) 500 mg PO DAILY [facility] Last Admin: 09/03/18 10:48 Dose: Not Given Folic Acid (Folic Acid) 1 mg PO DAILY [facility] Last Admin: 09/03/18 10:48 Dose: Not Given Heparin Sodium (Porcine) (Heparin) 5,000 units SC Q12 [facility] Influenza Virus Vaccine (Fluzone Quad [id number]) 60 mcg IM .ONCE ONE Stop: 09/05/18 12:01 Pantoprazole Sodium (Protonix Ec Tab) 40 mg PO DAILY [facility] Last Admin: 09/03/18 10:48 Dose: Not Given Pneumococcal Polyvalent Vaccine (Pneumovax 23 Vaccine) 0.5 ml IM .ONCE ONE Stop: 09/05/18 12:01 Rosuvastatin Calcium (Crestor) 5 mg PO HS [facility] Last Admin: 09/03/18 21:44 Dose: Not Given Results - Vital Signs Recent Vital Signs: Last Vital Signs Temp 98.9 F 09/03/18 23:16 Pulse 86 09/04/18 07:30 Resp 20 09/03/18 23:16 BP 131/63 09/03/18 23:16 Pulse Ox 96 09/03/18 23:16 - Labs Result Diagrams: 09/02/18 19:52 09/02/18 21:06 Labs: Laboratory Results - last 24 hr 09/03/18 09/03/18 09/03/18 11:53 17:22 21:17 POC Glucose (mg/dL) 118 H 138 H 131 H 09/04/18 06:09 POC Glucose (mg/dL) 109
[2018-09-04] MEDS: Pantoprazole 40 mg EC Tab PO SCH (10:53)
--- NOTE | 2018-09-04 15:38 | CP.PCM.CON ---
History of Present Illness - History of Present Illness History of Present Illness: As per daughter patient was in the living room around 6 pm in her recliner and while talking became confused, speaking gibberish and not recognizing anyone. They walked/carried her to bed to rest. After a few minutes, they heard a noise and found the patient on the floor , face down. Still confused, weak, slurred speach. Patient is not a tpa candidate as her symptoms resolved. Initial CT scan head was normal. Since admission, she has been undergoing stroke workup. PMh/PSH: Dementia FH/SH: lives alone All: nkda On exam: awake alert and not oriented except to herself. Cannot name and repeats well. She says that a ring is an object she cannot remember. no motor deficits, no sensory deficits. Speaks full sentences. Past Patient History - Infectious Disease Hx of Infectious Diseases: None - Past Medical History & Family History Past Medical History?: Yes - Past Social History Smoking Status: Never Smoked - CARDIAC Hx Hypercholesterolemia: Yes Hx Hypertension: Yes - PULMONARY Hx Respiratory Disorders: No - NEUROLOGICAL Hx Dementia: Yes - HEENT Hx HEENT Problems: Yes Hx Cataracts: Yes - RENAL Hx Chronic Kidney Disease: No - ENDOCRINE/METABOLIC Hx Diabetes Mellitus Type 2: Yes - HEMATOLOGICAL/ONCOLOGICAL Hx Blood Disorders: No - INTEGUMENTARY Hx Dermatological Problems: No - MUSCULOSKELETAL/RHEUMATOLOGICAL Hx Falls: Yes - GASTROINTESTINAL Hx Gastrointestinal Disorders: No - GENITOURINARY/GYNECOLOGICAL Hx Genitourinary Disorders: No - PSYCHIATRIC Hx Substance Use: No - SURGICAL HISTORY Hx Surgeries: No Other/Comment: catarats surgery - ANESTHESIA Hx Anesthesia: Yes Hx Anesthesia Reactions: No Hx Malignant Hyperthermia: No Meds Allergies/Adverse Reactions: Allergies Allergy/AdvReac Type Severity Reaction Status Date / Time No Known Allergies Allergy Verified 09/02/18 19:09 - Medications Medications: Current Medications Acetaminophen (Tylenol 325mg Tab) 650 mg PO Q6 PRN PRN Reason: Pain, moderate (4-7) Last Admin: 09/04/18 05:48 Dose: 650 mg Alprazolam (Xanax) 0.5 mg PO BID PRN PRN Reason: Anxiety Last Admin: 09/03/18 21:43 Dose: 0.5 mg Aspirin (Ecotrin) 81 mg PO DAILY [facility] Last Admin: 09/04/18 10:53 Dose: 81 mg Calcium Carbonate (Oscal) 500 mg PO DAILY [facility] Last Admin: 09/04/18 10:53 Dose: 500 mg Folic Acid (Folic Acid) 1 mg PO DAILY [facility] Last Admin: 09/04/18 10:53 Dose: 1 mg Heparin Sodium (Porcine) (Heparin) 5,000 units SC Q12 [facility] Last Admin: 09/04/18 10:53 Dose: 5,000 units Influenza Virus Vaccine (Fluzone Quad [id number]) 60 mcg IM .ONCE ONE Stop: 09/05/18 12:01 Pantoprazole Sodium (Protonix Ec Tab) 40 mg PO DAILY [facility] Last Admin: 09/04/18 10:53 Dose: 40 mg Pneumococcal Polyvalent Vaccine (Pneumovax 23 Vaccine) 0.5 ml IM .ONCE ONE Stop: 09/05/18 12:01 Rosuvastatin Calcium (Crestor) 5 mg PO HS [facility] Last Admin: 09/03/18 21:44 Dose: Not Given Results - Vital Signs Recent Vital Signs: Last Vital Signs Temp 98 F 09/04/18 15:00 Pulse 79 09/04/18 15:00 Resp 20 09/04/18 15:00 BP 135/72 09/04/18 15:00 Pulse Ox 98 09/04/18 15:00 - Labs Result Diagrams: 09/02/18 19:52 09/02/18 21:06 Labs: Laboratory Results - last 24 hr 09/03/18 09/03/18 09/04/18 17:22 21:17 06:09 POC Glucose (mg/dL) 138 H 131 H 109 09/04/18 11:33 POC Glucose (mg/dL) 136 H Assessment & Plan - Assessment and Plan (Free Text) Assessment: 87 yr old woman who may have had a seizure at onset of fall, with baseline dementia. I feel her aphasia is more secondary to dementia than a true brocas aphasia but I will obtain MRI Brain without contrast. Plan: 1. ECHo 2. PT ST OT 3. EEG 4. MRI Brain without contrast 5. Aspirin [address] stokes Neu[facility]
--- NOTE | 2018-09-04 17:41 | CP.PCM.PN ---
Subjective - Date & Time of Evaluation Date of Evaluation: 09/04/18 Time of Evaluation: 17:39 - Subjective Subjective: patient is doing well, no headache, no new complaints. On exam: Normal neurological examination except for paraphasic errors. Objective - Vital Signs/Intake and Output Vital Signs (last 24 hours): Temp Pulse Resp BP Pulse Ox 98 F 80 20 135/72 98 09/04/18 15:00 09/04/18 16:00 09/04/18 15:00 09/04/18 15:00 09/04/18 15:00 Intake and Output: 09/04/18 09/04/18 06:59 18:59 Intake Total 1100 Output Total 1850 Balance -750 - Medications Medications: Current Medications Acetaminophen (Tylenol 325mg Tab) 650 mg PO ONCE ONE Stop: 09/04/18 18:01 Last Admin: 09/04/18 17:19 Dose: 650 mg Acetaminophen (Tylenol 325mg Tab) 650 mg PO Q6 PRN PRN Reason: Pain, moderate (4-7) Alprazolam (Xanax) 0.5 mg PO BID PRN PRN Reason: Anxiety Last Admin: 09/03/18 21:43 Dose: 0.5 mg Aspirin (Ecotrin) 81 mg PO DAILY [facility] Last Admin: 09/04/18 10:53 Dose: 81 mg Calcium Carbonate (Oscal) 500 mg PO DAILY [facility] Last Admin: 09/04/18 10:53 Dose: 500 mg Folic Acid (Folic Acid) 1 mg PO DAILY [facility] Last Admin: 09/04/18 10:53 Dose: 1 mg Heparin Sodium (Porcine) (Heparin) 5,000 units SC Q12 [facility] Last Admin: 09/04/18 10:53 Dose: 5,000 units Influenza Virus Vaccine (Fluzone Quad [id number]) 60 mcg IM .ONCE ONE Stop: 09/05/18 12:01 Pantoprazole Sodium (Protonix Ec Tab) 40 mg PO DAILY [facility] Last Admin: 09/04/18 10:53 Dose: 40 mg Pneumococcal Polyvalent Vaccine (Pneumovax 23 Vaccine) 0.5 ml IM .ONCE ONE Stop: 09/05/18 12:01 Rosuvastatin Calcium (Crestor) 5 mg PO HS [facility] Last Admin: 09/03/18 21:44 Dose: Not Given - Labs Labs: 09/02/18 19:52 09/02/18 21:06 PT 12.9 SECONDS (9.7-12.2) H 09/02/18 21:06 INR 1.2 09/02/18 21:06 APTT 24 SECONDS (21-34) 09/02/18 21:06 Assessment and Plan - Assessment and Plan (Free Text) Assessment: 87 yr old woman with possible brocas stroke vs syncope vs seizure. Plan: 1. MRI Brain in am 2. EEG in am Our team will follow Thank you Dr. Jones
--- NOTE | 2018-09-04 21:43 | CP.PCM.PN ---
Subjective - Subjective Subjective: dictated Objective - Vital Signs/Intake and Output Vital Signs (last 24 hours): Temp Pulse Resp BP Pulse Ox 98 F 77 20 135/72 98 09/04/18 15:00 09/04/18 20:00 09/04/18 15:00 09/04/18 15:00 09/04/18 15:00 - Medications Medications: Current Medications Acetaminophen (Tylenol 325mg Tab) 650 mg PO Q6 PRN PRN Reason: Pain, moderate (4-7) Alprazolam (Xanax) 0.5 mg PO BID PRN PRN Reason: Anxiety Last Admin: 09/03/18 21:43 Dose: 0.5 mg Aspirin (Ecotrin) 81 mg PO DAILY [facility] Last Admin: 09/04/18 10:53 Dose: 81 mg Calcium Carbonate (Oscal) 500 mg PO DAILY [facility] Last Admin: 09/04/18 10:53 Dose: 500 mg Folic Acid (Folic Acid) 1 mg PO DAILY [facility] Last Admin: 09/04/18 10:53 Dose: 1 mg Heparin Sodium (Porcine) (Heparin) 5,000 units SC Q12 [facility] Last Admin: 09/04/18 10:53 Dose: 5,000 units Influenza Virus Vaccine (Fluzone Quad [id number]) 60 mcg IM .ONCE ONE Stop: 09/05/18 12:01 Pantoprazole Sodium (Protonix Ec Tab) 40 mg PO DAILY [facility] Last Admin: 09/04/18 10:53 Dose: 40 mg Pneumococcal Polyvalent Vaccine (Pneumovax 23 Vaccine) 0.5 ml IM .ONCE ONE Stop: 09/05/18 12:01 Rosuvastatin Calcium (Crestor) 5 mg PO HS [facility] Last Admin: 09/03/18 21:44 Dose: Not Given - Labs Labs: 09/02/18 19:52 09/02/18 21:06 PT 12.9 SECONDS (9.7-12.2) H 09/02/18 21:06 INR 1.2 09/02/18 21:06 APTT 24 SECONDS (21-34) 09/02/18 21:06
--- NOTE | 2018-09-05 03:22 | CON ---
DATE: 09/04/2018 HISTORY OF PRESENT ILLNESS: This is an 87-year-old white female with a past medical history of hypertension, diabetes, hyperlipidemia, anxiety, depression, and recurrent falls. 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 The patient is very forgetful, and she felt dizzy and had a fall. There is no bleed in the head, and also has a headache, neck pain, body ache, and tiredness. PAST MEDICAL HISTORY: Hypertension, diabetes, hyperlipidemia, anxiety, and recurrent falls. SOCIAL HISTORY: Does not smoke. Does not drink. Lives alone. CURRENT MEDICATIONS: Crestor, Tylenol, meclizine, NovoLog, and Tofranil. PHYSICAL EXAMINATION: VITAL SIGNS: Blood pressure 160/85. HEENT: Normocephalic and atraumatic. NECK: Supple. NEUROLOGIC EXAM: Awake, oriented to self. Cranial nerves II through XII were tested. Pupils reactive. EOM intact. Visual field full. No facial asymmetry. Tongue midline. Motor examination: Moves all the extremities equally. Tone normal. Deep tendon reflexes 1+. Plantars downgoing. Sensory appears intact. Cerebellar gait deferred. IMPRESSION: Syncope and fall, possibly secondary to above multiple medical problems; hypertension; anxiety. CAT scan of the head does not show any bleed, and workup in progress. Continue present management. We will follow up. David Martinez MD
--- NOTE | 2018-09-05 03:41 | PN ---
DATE: 09/04/2018 SUBJECTIVE: Toby is more alert, less anxious, less agitated, calm. Blood pressure is down. PHYSICAL EXAMINATION: VITAL SIGNS: BP 135/72, pulse 79, respiratory rate 20, and temperature 98. LUNGS: Clear. No rales. No rhonchi. CARDIOVASCULAR SYSTEM: S1 and S2 plus S4 positive. ABDOMEN: Soft. CENTRAL NERVOUS SYSTEM: Awake, alert, and oriented x3. She is calm. She is moving all extremities. ASSESSMENT: 1. Fall, etiology unclear, rule out cardiac arrhythmia, could be vasovagal. Most likely, it is poor technique with mechanical fall. 2. Hypertension. 3. Diabetes. 4. Anxiety. PLAN: Continue current medications. Physical therapy rehab. Monitor the patient. Sandeep Hernandez MD
[2018-09-05 07:51] VITALS: RESP 20
[2018-09-05 08:16] LABS: BASO # 0.1 K/uL (0.0-0.2); BASO % 0.8 % (0.0-2.0); EOS % 0.5 % (0.0-4.0); LYMPH # 1.6 K/uL (1.0-4.3); LYMPH % 18.1 % (20.0-40.0); MEAN CELL VOLUME 90.6 fL (81.0-99.0); MEAN CORPUSCULAR HEMOGLOBIN 30.3 pg (27.0-31.0); MEAN CORPUSCULAR HGB CONC 33.5 g/dL (33.0-37.0); MONO # 0.6 K/uL (0.0-0.8); MONO % 7.2 % (0.0-10.0); NEUT # 6.4 K/uL (1.8-7.0); NEUT % 73.4 % (50.0-75.0); RBC 4.63 Mil/uL (3.80-5.20); RED CELL DISTRIBUTION WIDTH 13.9 % (11.5-14.5); WHITE BLOOD COUNT 8.7 K/uL (4.8-10.8)
[2018-09-05 08:35] LABS: ALB/GLOB RATIO 1.2 (1.0-2.1); ALBUMIN 3.9 g/dL (3.5-5.0); ALT/SGPT 26 U/L (9-52); AST/SGOT 32 U/L (14-36); BLOOD UREA NITROGEN 13 mg/dL (7-17); CALCIUM 9.2 mg/dl (8.6-10.4); GFR NON-AFRICAN AMERICAN > 60
[2018-09-05] MEDS: Pantoprazole 40 mg EC Tab PO SCH (10:43)
[2018-09-05] MEDS ORDERED: Influenza Vaccine 60 MCG/0.5 ML SYR (3 yr & up) IM ONE (12:00)
[2018-09-05] MEDS ORDERED: Pneumococcal 23-Valent Vaccine IM ONE (12:00)
--- NOTE | 2018-09-05 12:06 | CP.PCM.PN ---
<Kisha Craven - Last Filed: 09/05/18 11:58> Subjective - Date & Time of Evaluation Date of Evaluation: 09/05/18 Time of Evaluation: 11:59 - Subjective Subjective: Cardiology Follow Up Patient seen and examined at bedside. Patient denies any chest pain, shortness of breath or palpitations Objective - Vital Signs/Intake and Output Vital Signs (last 24 hours): Temp Pulse Resp BP Pulse Ox 98.1 F 35 L 20 166/79 H 97 09/05/18 07:00 09/05/18 07:30 09/05/18 07:00 09/05/18 07:00 09/05/18 07:00 Intake and Output: 09/05/18 09/05/18 06:59 18:59 Intake Total 350 Output Total 2200 Balance -1850 - Medications Medications: Current Medications Acetaminophen (Tylenol 325mg Tab) 650 mg PO Q6 PRN PRN Reason: Pain, moderate (4-7) Alprazolam (Xanax) 0.5 mg PO BID PRN PRN Reason: Anxiety Last Admin: 09/04/18 22:35 Dose: 0.5 mg Aspirin (Ecotrin) 81 mg PO DAILY [facility] Last Admin: 09/05/18 10:43 Dose: 81 mg Calcium Carbonate (Oscal) 500 mg PO DAILY [facility] Last Admin: 09/05/18 10:43 Dose: 500 mg Folic Acid (Folic Acid) 1 mg PO DAILY [facility] Last Admin: 09/05/18 10:43 Dose: 1 mg Heparin Sodium (Porcine) (Heparin) 5,000 units SC Q12 [facility] Last Admin: 09/05/18 10:43 Dose: 5,000 units Influenza Virus Vaccine (Fluzone Quad [id number]) 60 mcg IM .ONCE ONE Stop: 09/05/18 12:01 Pantoprazole Sodium (Protonix Ec Tab) 40 mg PO DAILY [facility] [place] Last Admin: 09/05/18 10:43 Dose: 40 mg Pneumococcal Polyvalent Vaccine (Pneumovax 23 Vaccine) 0.5 ml IM .ONCE ONE Stop: 09/05/18 12:01 Rosuvastatin Calcium (Crestor) 5 mg PO HS [facility] [place] Last Admin: 09/04/18 22:32 Dose: 5 mg - Labs Labs: 09/05/18 08:01 09/05/18 08:01 PT 12.9 SECONDS (9.7-12.2) H 09/02/18 21:06 INR 1.2 09/02/18 21:06 APTT 24 SECONDS (21-34) 09/02/18 21:06 - Constitutional Appears: No Acute Distress - Head Exam Head Exam: NORMAL INSPECTION, NORMOCEPHALIC - Eye Exam Eye Exam: EOMI, Normal appearance, PERRL - ENT Exam ENT Exam: Mucous Membranes Moist - Respiratory Exam Respiratory Exam: Clear to Ausculation Bilateral. absent: Rales, Rhonchi, Wheezes - Cardiovascular Exam Cardiovascular Exam: +S1, +S2 - GI/Abdominal Exam GI & Abdominal Exam: Soft, Normal Bowel Sounds. absent: Distended, Tenderness - Extremities Exam Extremities Exam: Normal Inspection. absent: Pedal Edema, Tenderness - Neurological Exam Neurological Exam: Alert, Awake - Psychiatric Exam Psychiatric exam: Normal Affect, Normal Mood - Skin Skin Exam: Dry, Intact, Normal Color, Warm Assessment and Plan - Assessment and Plan (Free Text) Plan: CVA Imaging: - EKG: NSR - ECHO: Normal EF - Head / Neck CTA: No evidence of occlusion or significant stenosis bilaterally Management: - Continue with ASA and DVT PPX Case discussed with Kisha Casillas DO, PGY2 <Tariq Angel - Last Filed: 09/05/18 22:23> Objective - Vital Signs/Intake and Output Vital Signs (last 24 hours): Temp Pulse Resp BP Pulse Ox 98.3 F 90 20 145/66 98 09/05/18 15:00 09/05/18 16:30 09/05/18 15:00 09/05/18 15:00 09/05/18 15:00 - Medications Medications: Current Medications Acetaminophen (Tylenol 325mg Tab) 650 mg PO Q6 PRN PRN Reason: Pain, moderate (4-7) Alprazolam (Xanax) 0.5 mg PO BID PRN PRN Reason: Anxiety Last Admin: 09/04/18 22:35 Dose: 0.5 mg Aspirin (Ecotrin) 81 mg PO DAILY [facility] Last Admin: 09/05/18 10:43 Dose: 81 mg Calcium Carbonate (Oscal) 500 mg PO DAILY [facility] Last Admin: 09/05/18 10:43 Dose: 500 mg Docusate Sodium (Colace) 100 mg PO BID [facility] Last Admin: 09/05/18 19:03 Dose: 100 mg Folic Acid (Folic Acid) 1 mg PO DAILY [facility] Last Admin: 09/05/18 10:43 Dose: 1 mg Heparin Sodium (Porcine) (Heparin) 5,000 units SC Q12 [facility] Last Admin: 09/05/18 21:49 Dose: 5,000 units Pantoprazole Sodium (Protonix Ec Tab) 40 mg PO DAILY [facility] Last Admin: 09/05/18 10:43 Dose: 40 mg Rosuvastatin Calcium (Crestor) 5 mg PO HS [facility] Last Admin: 09/05/18 22:02 Dose: 5 mg - Labs Labs: 09/05/18 08:01 09/05/18 08:01 PT 12.9 SECONDS (9.7-12.2) H 09/02/18 21:06 INR 1.2 09/02/18 21:06 APTT 24 SECONDS (21-34) 09/02/18 21:06 Assessment and Plan - Assessment and Plan (Free Text) Plan: Patient seen and evaluated in person by me. Plan of care d/w the medical representative and as documented
[2018-09-05] MEDS ORDERED: Bisacodyl 5mg EC Tab PO ONE ×2 (14:50→16:15)
--- NOTE | 2018-09-05 21:53 | CP.PCM.PN ---
Subjective - Subjective Subjective: dictated Objective - Vital Signs/Intake and Output Vital Signs (last 24 hours): Temp Pulse Resp BP Pulse Ox 98.3 F 90 20 145/66 98 09/05/18 15:00 09/05/18 16:30 09/05/18 15:00 09/05/18 15:00 09/05/18 15:00 - Medications Medications: Current Medications Acetaminophen (Tylenol 325mg Tab) 650 mg PO Q6 PRN PRN Reason: Pain, moderate (4-7) Alprazolam (Xanax) 0.5 mg PO BID PRN PRN Reason: Anxiety Last Admin: 09/04/18 22:35 Dose: 0.5 mg Aspirin (Ecotrin) 81 mg PO DAILY [facility] Last Admin: 09/05/18 10:43 Dose: 81 mg Calcium Carbonate (Oscal) 500 mg PO DAILY [facility] Last Admin: 09/05/18 10:43 Dose: 500 mg Docusate Sodium (Colace) 100 mg PO BID [facility] Last Admin: 09/05/18 19:03 Dose: 100 mg Folic Acid (Folic Acid) 1 mg PO DAILY [facility] Last Admin: 09/05/18 10:43 Dose: 1 mg Heparin Sodium (Porcine) (Heparin) 5,000 units SC Q12 [facility] Last Admin: 09/05/18 21:49 Dose: 5,000 units Pantoprazole Sodium (Protonix Ec Tab) 40 mg PO DAILY [facility] Last Admin: 09/05/18 10:43 Dose: 40 mg Rosuvastatin Calcium (Crestor) 5 mg PO HS [facility] Last Admin: 09/04/18 22:32 Dose: 5 mg - Labs Labs: 09/05/18 08:01 09/05/18 08:01 PT 12.9 SECONDS (9.7-12.2) H 09/02/18 21:06 INR 1.2 09/02/18 21:06 APTT 24 SECONDS (21-34) 09/02/18 21:06
--- NOTE | 2018-09-06 02:24 | PN ---
DATE: 09/05/2018 SUBJECTIVE: Ishan is afebrile. She denies any chest pain or shortness of breath. She gets dizzy at times. She gets and confused and forgetful at times. She has a history of recurrent falls. PHYSICAL EXAMINATION: VITAL SIGNS: Blood pressure 145/63, pulse 75, respiratory rate 20, and temperature 98.3. LUNGS: Clear. No rales. No rhonchi. CARDIOVASCULAR SYSTEM: S1 and S2 regular. ABDOMEN: Soft. Nontender. Bowel sounds are positive. CENTRAL NERVOUS SYSTEM: Awake, alert, and oriented x3. Power is 5/5 x4. Plantars are downgoing. Unable to check gait. ASSESSMENT AND PLAN: 1. Fall. Rule out cerebrovascular accident. Rule out cardiac arrhythmia. 2. Hypertension. 3. Diabetes. 4. Anxiety and depression. PLAN: Physical therapy, rehab. Monitor the patient. Sandeep Hernandez MD
[2018-09-06] MEDS: Pantoprazole 40 mg EC Tab PO SCH (10:29)
[2018-09-06 14:31] LABS: BASO # 0.1 K/uL (0.0-0.2); BASO % 0.6 % (0.0-2.0); EOS # 0.1 K/uL (0.0-0.7); EOS % 0.8 % (0.0-4.0); HEMOGLOBIN 15.7 g/dL (11.0-16.0); LYMPH % 21.9 % (20.0-40.0); MEAN CELL VOLUME 91.8 fL (81.0-99.0); MEAN CORPUSCULAR HEMOGLOBIN 31.2 pg (27.0-31.0); MEAN PLATELET VOLUME 8.1 fL (7.2-11.7); MONO # 0.5 K/uL (0.0-0.8); MONO % 5.3 % (0.0-10.0); NEUT # 6.5 K/uL (1.8-7.0); NEUT % 71.4 % (50.0-75.0); RBC 5.01 Mil/uL (3.80-5.20); RED CELL DISTRIBUTION WIDTH 14.4 % (11.5-14.5); WHITE BLOOD COUNT 9.1 K/uL (4.8-10.8)
--- NOTE | 2018-09-06 15:50 | MRI ---
Date of service: 09/05/2018 PROCEDURE: MRI BRAIN WITHOUT CONTRAST HISTORY: stroke COMPARISON: Noncontrast head CT from 09/02/2018 and MRI brain with contrast from 07/18/2018 TECHNIQUE: Multiplanar, multisequence MR images of the brain were obtained without intravenous contrast enhancement. FINDINGS: HEMORRHAGE: None DWI: No evidence of an acute or early subacute infarction. BRAIN PARENCHYMA: Again seen are severe chronic microangiopathic changes. There is redemonstration of a stable T1 isointense, T2 hypointense and FLAIR hyperintense mass in the left subependymal/periventricular region of the occipital horn of the left lateral ventricle. There is no mass effect or abnormal extra-axial fluid collection. VENTRICLES: There is moderate age-related global parenchymal volume loss and proportionate enlargement of the ventricles and cortical sulci. There are prominent perivascular spaces in the basal ganglia. CRANIUM: There is severe hyperostosis frontalis interna. ORBITS: Grossly unremarkable. PARANASAL SINUSES/MASTOIDS: Predominantly clear. Trace right mastoid effusion. VASCULAR SYSTEM: Skull base flow voids intact. OTHER FINDINGS: None. IMPRESSION: No acute intracranial abnormality. Severe chronic microangiopathic changes and moderate age-related global parenchymal volume loss. No other significant interval change.
--- NOTE | 2018-09-07 00:33 | CP.PCM.PN ---
Subjective - Subjective Subjective: dictated Objective - Vital Signs/Intake and Output Vital Signs (last 24 hours): Temp Pulse Resp BP Pulse Ox 98.9 F 88 20 130/69 96 09/06/18 23:05 09/06/18 23:05 09/06/18 23:05 09/06/18 23:05 09/06/18 23:05 Intake and Output: 09/06/18 09/07/18 18:59 06:59 Intake Total 300 300 Output Total 600 800 Balance -300 -500 - Medications Medications: Current Medications Acetaminophen (Tylenol 325mg Tab) 650 mg PO Q6 PRN PRN Reason: Pain, moderate (4-7) Last Admin: 09/05/18 22:31 Dose: 650 mg Alprazolam (Xanax) 0.5 mg PO BID PRN PRN Reason: Anxiety Last Admin: 09/06/18 21:27 Dose: 0.5 mg Aspirin (Ecotrin) 81 mg PO DAILY [facility] Last Admin: 09/06/18 10:30 Dose: 81 mg Calcium Carbonate (Oscal) 500 mg PO DAILY [facility] Last Admin: 09/06/18 10:29 Dose: 500 mg Docusate Sodium (Colace) 100 mg PO BID [facility] Last Admin: 09/06/18 17:58 Dose: Not Given Folic Acid (Folic Acid) 1 mg PO DAILY [facility] Last Admin: 09/06/18 10:29 Dose: 1 mg Heparin Sodium (Porcine) (Heparin) 5,000 units SC Q12 [facility] Last Admin: 09/06/18 21:27 Dose: 5,000 units Pantoprazole Sodium (Protonix Ec Tab) 40 mg PO DAILY [facility] Last Admin: 09/06/18 10:29 Dose: 40 mg Rosuvastatin Calcium (Crestor) 5 mg PO HS [facility] Last Admin: 09/06/18 21:27 Dose: 5 mg - Labs Labs: 09/06/18 14:13 09/05/18 08:01 PT 12.9 SECONDS (9.7-12.2) H 09/02/18 21:06 INR 1.2 09/02/18 21:06 APTT 24 SECONDS (21-34) 09/02/18 21:06
[2018-09-07] MEDS: Pantoprazole 40 mg EC Tab PO SCH (09:13)
--- NOTE | 2018-09-07 10:33 | CP.PCM.PCO ---
Physician Communication Note - Physician Communication Note Physician Communication Note: walker consulted 09/04; [facility] not following pt
--- NOTE | 2018-09-07 10:45 | PN ---
DATE: 09/07/2018 SUBJECTIVE: Ame Olmstead is feeling better. She is afebrile. Her MRI is negative for stroke. No nausea, vomiting. Hemodynamically stable. PHYSICAL EXAMINATION: VITAL SIGNS: Blood pressure 144/81, pulse 75, respiratory rate 20, temperature 97.9. LUNGS: Clear. CARDIOVASCULAR EXAM: S1, S2, regular. ABDOMEN: Soft. ASSESSMENT: 1. Fall, near syncope. 2. Hypertension. 3. Diabetes. 4. Anxiety and depression. PLAN: Continue current medication, physiotherapy. Sandeep Hernandez MD
--- NOTE | 2018-09-07 13:38 | VASCLAB ---
Date of service: 09/03/2018 PROCEDURE: Carotid Duplex Exam. HISTORY: CVA COMPARISON: None available. TECHNIQUE: Grayscale and duplex Doppler evaluation of the cervical carotid and vertebral arteries were performed. The common carotid, carotid bifurcations and cervical Internal Carotid Artery (ICA) and proximal External Carotid Artery (ECA) were evaluated. The vertebral arteries were evaluated for gross patency and flow direction. Report prepared by KJ Sifuentes, RVT FINDINGS: RIGHT CAROTID ARTERIES: 1. Common Carotid Artery: No significant focal plaque formation of the right common carotid artery. Maximum Peak Systolic velocity: 58 cm/sec: End-diastolic velocity 9 cm/sec. 2. Carotid Bifurcation: plaque formation. Maximum Peak Systolic velocity: 53 cm/sec: End-diastolic velocity 9 cm/sec. 3. Internal Carotid Artery: Plaque description: 3.1. Proximal Segment: Peak systolic velocity 60 cm/sec: End-diastolic velocity 19 cm/sec - % stenosis 3.2. Middle Segment: Peak systolic velocity 79 cm/sec: End-diastolic velocity 22 cm/sec - % stenosis 3.3. Distal Segment: Peak systolic velocity 84 cm/sec: End-diastolic velocity 23 cm/sec - % stenosis 4. External Carotid Artery: No significant focal plaque formation. Peak systolic velocity 62 cm/sec 5. ICA/CCA Ratio: 1.3 LEFT CAROTID ARTERIES: 1. Common Carotid Artery: No significant focal plaque formation of the left common carotid artery. Maximum Peak Systolic velocity: 77 cm/sec: End-diastolic velocity 10 cm/sec. 2. Carotid Bifurcation: plaque formation. Maximum Peak Systolic velocity: 78 cm/sec: End-diastolic velocity 17 cm/sec. 3. Internal Carotid Artery: Plaque description: 3.1. Proximal Segment: Peak systolic velocity 59 cm/sec: End-diastolic velocity 12 cm/sec - % stenosis 3.2. Middle Segment: Peak systolic velocity 68 cm/sec: End-diastolic velocity 20 cm/sec - % stenosis 3.3. Distal Segment: Peak systolic velocity 74 cm/sec: End-diastolic velocity 21 cm/sec - % stenosis 4. External Carotid Artery: No significant focal plaque formation. Peak systolic velocity 36 cm/sec 5. ICA/CCA Ratio: 1.1 VERTEBRAL ARTERIES: 1. Right Vertebral Artery: The right vertebral artery flow direction is antegrade. 2. Left Vertebral Artery: The left vertebral artery flow direction is antegrade. OTHER FINDINGS: 1. Right Brachial Blood pressure: mmHg. 2. Left Brachial Blood pressure: mmHg. 3. No atherosclerotic calcification present IMPRESSION: RIGHT: Duplex scan does not suggest hemodynamically significant stenosis of the right extracranial carotid arteries. LEFT: Duplex scan does not suggest hemodynamically significant stenosis of the left extracranial carotid arteries.
[2018-09-07 14:07] LABS: BASO % 0.4 % (0.0-2.0); EOS # 0.2 K/uL (0.0-0.7); EOS % 2.2 % (0.0-4.0); LYMPH # 2.1 K/uL (1.0-4.3); LYMPH % 20.4 % (20.0-40.0); MEAN CELL VOLUME 93.5 fL (81.0-99.0); MEAN CORPUSCULAR HEMOGLOBIN 30.1 pg (27.0-31.0); MEAN CORPUSCULAR HGB CONC 32.2 g/dL (33.0-37.0); MONO # 0.6 K/uL (0.0-0.8); MONO % 5.6 % (0.0-10.0); NEUT # 7.5 K/uL (1.8-7.0); NEUT % 71.4 % (50.0-75.0); RBC 4.67 Mil/uL (3.80-5.20); RED CELL DISTRIBUTION WIDTH 14.7 % (11.5-14.5); WHITE BLOOD COUNT 10.4 K/uL (4.8-10.8)
[2018-09-07 14:33] LABS: ALB/GLOB RATIO 1.2 (1.0-2.1); ALBUMIN 3.9 g/dL (3.5-5.0); ALT/SGPT 28 U/L (9-52); AST/SGOT 33 U/L (14-36); BLOOD UREA NITROGEN 18 mg/dL (7-17); CALCIUM 8.9 mg/dl (8.6-10.4); GFR NON-AFRICAN AMERICAN > 60
--- NOTE | 2018-09-07 21:49 | CP.PCM.PN ---
Subjective - Subjective Subjective: dictated Objective - Vital Signs/Intake and Output Vital Signs (last 24 hours): Temp Pulse Resp BP Pulse Ox 98.3 F 94 H 20 135/81 98 09/07/18 15:00 09/07/18 15:00 09/07/18 15:00 09/07/18 15:00 09/07/18 15:00 Intake and Output: 09/07/18 09/08/18 18:59 06:59 Intake Total 200 Output Total 300 Balance -100 - Medications Medications: Current Medications Acetaminophen (Tylenol 325mg Tab) 650 mg PO Q6 PRN PRN Reason: Pain, moderate (4-7) Last Admin: 09/05/18 22:31 Dose: 650 mg Alprazolam (Xanax) 0.5 mg PO BID PRN PRN Reason: Anxiety Last Admin: 09/07/18 09:13 Dose: 0.5 mg Aspirin (Ecotrin) 81 mg PO DAILY [facility] Last Admin: 09/07/18 09:13 Dose: 81 mg Calcium Carbonate (Oscal) 500 mg PO DAILY [facility] Last Admin: 09/07/18 09:13 Dose: 500 mg Docusate Sodium (Colace) 100 mg PO BID [facility] Last Admin: 09/07/18 17:49 Dose: 100 mg Folic Acid (Folic Acid) 1 mg PO DAILY [facility] Last Admin: 09/07/18 09:13 Dose: 1 mg Pantoprazole Sodium (Protonix Ec Tab) 40 mg PO DAILY [facility] Last Admin: 09/07/18 09:13 Dose: 40 mg Rosuvastatin Calcium (Crestor) 5 mg PO HS [facility] Last Admin: 09/06/18 21:27 Dose: 5 mg - Labs Labs: 09/07/18 13:58 09/07/18 13:58 PT 12.9 SECONDS (9.7-12.2) H 09/02/18 21:06 INR 1.2 09/02/18 21:06 APTT 24 SECONDS (21-34) 09/02/18 21:06
--- NOTE | 2018-09-07 22:51 | CP.PCM.PN ---
Subjective - Date & Time of Evaluation Date of Evaluation: 09/07/18 Time of Evaluation: 09:20 - Subjective Subjective: Patient seen and examined at bedside. Patient denies any chest pain, shortness of breath or palpitations Physcal Examination - Constitutional Appears: No Acute Distress - Head Exam Head Exam: NORMAL INSPECTION, NORMOCEPHALIC - Eye Exam Eye Exam: EOMI, Normal appearance, PERRL - ENT Exam ENT Exam: Mucous Membranes Moist - Respiratory Exam Respiratory Exam: Clear to Ausculation Bilateral. absent: Rales, Rhonchi, Wheezes - Cardiovascular Exam Cardiovascular Exam: +S1, +S2 - GI/Abdominal Exam GI & Abdominal Exam: Soft, Normal Bowel Sounds. absent: Distended, Tenderness - Extremities Exam Extremities Exam: Normal Inspection. absent: Pedal Edema, Tenderness - Neurological Exam Neurological Exam: Alert, Awake - Psychiatric Exam Psychiatric exam: Normal Affect, Normal Mood - Skin Skin Exam: Dry, Intact, Normal Color, Warm Assessment and Plan - Assessment and Plan (Free Text) Plan: CVA Imaging: - EKG: NSR - ECHO: Normal EF - Head / Neck CTA: No evidence of occlusion or significant stenosis bilaterally Management: - Continue with ASA and DVT PPX Objective - Vital Signs/Intake and Output Vital Signs (last 24 hours): Temp Pulse Resp BP Pulse Ox 98.3 F 94 H 20 135/81 98 09/07/18 15:00 09/07/18 15:00 09/07/18 15:00 09/07/18 15:00 09/07/18 15:00 Intake and Output: 09/07/18 09/08/18 18:59 06:59 Intake Total 200 400 Output Total 300 350 Balance -100 50 - Medications Medications: Current Medications Acetaminophen (Tylenol 325mg Tab) 650 mg PO Q6 PRN PRN Reason: Pain, moderate (4-7) Last Admin: 09/05/18 22:31 Dose: 650 mg Alprazolam (Xanax) 0.5 mg PO BID PRN PRN Reason: Anxiety Last Admin: 09/07/18 09:13 Dose: 0.5 mg Aspirin (Ecotrin) 81 mg PO DAILY [facility] Last Admin: 09/07/18 09:13 Dose: 81 mg Calcium Carbonate (Oscal) 500 mg PO DAILY [facility] Last Admin: 09/07/18 09:13 Dose: 500 mg Docusate Sodium (Colace) 100 mg PO BID [facility] Last Admin: 09/07/18 17:49 Dose: 100 mg Folic Acid (Folic Acid) 1 mg PO DAILY [facility] Last Admin: 09/07/18 09:13 Dose: 1 mg Pantoprazole Sodium (Protonix Ec Tab) 40 mg PO DAILY [facility] Last Admin: 09/07/18 09:13 Dose: 40 mg Rosuvastatin Calcium (Crestor) 5 mg PO HS [facility] Last Admin: 09/07/18 22:03 Dose: 5 mg - Labs Labs: 09/07/18 13:58 09/07/18 13:58 PT 12.9 SECONDS (9.7-12.2) H 09/02/18 21:06 INR 1.2 09/02/18 21:06 APTT 24 SECONDS (21-34) 09/02/18 21:06
--- NOTE | 2018-09-08 02:07 | PN ---
DATE: 09/07/2018 SUBJECTIVE: Ishan is negative for stroke. She has recurrent falls. She is for evaluation by manager social media for safe discharge. The patient is afebrile. No shortness of breath. She is forgetful at times, and she gets falls. PHYSICAL EXAMINATION: VITAL SIGNS: Blood pressure 135/81, pulse 94, respiratory rate 20, and temperature 98.3. LUNGS: Clear. No rales. No rhonchi. CARDIOVASCULAR SYSTEM: PMI not localized. S1 and S2 regular. ABDOMEN: Soft, nontender. Bowel sounds are positive. ASSESSMENT: 1. Recurrent fall, etiology unclear. It could be medication induced versus poor technique. 2. Hypertension. 3. Diabetes. 4. Generalized anxiety disorder. PLAN: Continue physical therapy, ambulation, and the patient is waiting for evaluation by manager social media for possible placement. Sandeep Hernandez MD
[2018-09-08] MEDS: Pantoprazole 40 mg EC Tab PO SCH (09:54)
--- NOTE | 2018-09-08 14:45 | CP.PCM.PN ---
Subjective - Date & Time of Evaluation Date of Evaluation: 09/08/18 Time of Evaluation: 08:30 - Subjective Subjective: Covering for Dr Angel Pt denied any chest pain, palpitations or sob No calf pain on Phys exam Presently on ASA and Lovenox Objective - Vital Signs/Intake and Output Vital Signs (last 24 hours): Temp Pulse Resp BP Pulse Ox 98.3 F 78 20 139/81 99 09/08/18 07:00 09/08/18 07:00 09/08/18 07:00 09/08/18 07:00 09/08/18 07:00 Intake and Output: 09/08/18 09/08/18 06:59 18:59 Intake Total 400 Output Total 1050 Balance -650 - Medications Medications: Current Medications Acetaminophen (Tylenol 325mg Tab) 650 mg PO Q6 PRN PRN Reason: Pain, moderate (4-7) Last Admin: 09/05/18 22:31 Dose: 650 mg Alprazolam (Xanax) 0.5 mg PO BID PRN PRN Reason: Anxiety Last Admin: 09/07/18 09:13 Dose: 0.5 mg Aspirin (Ecotrin) 81 mg PO DAILY [facility] Last Admin: 09/08/18 09:54 Dose: 81 mg Calcium Carbonate (Oscal) 500 mg PO DAILY [facility] Last Admin: 09/08/18 09:54 Dose: 500 mg Docusate Sodium (Colace) 100 mg PO BID [facility] Last Admin: 09/08/18 09:55 Dose: 100 mg Folic Acid (Folic Acid) 1 mg PO DAILY [facility] Last Admin: 09/08/18 09:55 Dose: 1 mg Pantoprazole Sodium (Protonix Ec Tab) 40 mg PO DAILY [facility] Last Admin: 09/08/18 09:54 Dose: 40 mg Rosuvastatin Calcium (Crestor) 5 mg PO HS [facility] Last Admin: 09/07/18 22:03 Dose: 5 mg - Labs Labs: 09/07/18 13:58 09/07/18 13:58 PT 12.9 SECONDS (9.7-12.2) H 09/02/18 21:06 INR 1.2 09/02/18 21:06 APTT 24 SECONDS (21-34) 09/02/18 21:06 - Constitutional Appears: Non-toxic - Eye Exam Eye Exam: absent: Scleral icterus - ENT Exam ENT Exam: Mucous Membranes Moist - Neck Exam Neck Exam: Full ROM - Respiratory Exam Respiratory Exam: Decreased Breath Sounds - Cardiovascular Exam Cardiovascular Exam: absent: REGULAR RHYTHM - GI/Abdominal Exam GI & Abdominal Exam: Soft - Extremities Exam Extremities Exam: absent: Calf Tenderness, Pedal Edema - Neurological Exam Neurological Exam: Alert Assessment and Plan - Assessment and Plan (Free Text) Assessment: CVA Plan: Cont asa and Lovenox DVT proph Physical therapy
--- NOTE | 2018-09-08 22:07 | CARD ---
APPROVED REPORT Date of service: 09/02/2018 EKG Measurement Heart [id number] <Conclusion> Normal sinus rhythm Minimal voltage criteria for LVH, may be normal variant Borderline ECG
--- NOTE | 2018-09-08 23:41 | CP.PCM.PN ---
Subjective - Subjective Subjective: sixtTED Objective - Vital Signs/Intake and Output Vital Signs (last 24 hours): Temp Pulse Resp BP Pulse Ox 98 F 87 20 119/64 98 09/08/18 16:30 09/08/18 16:30 09/08/18 16:30 09/08/18 16:30 09/08/18 16:30 Intake and Output: 09/08/18 09/09/18 18:59 06:59 Intake Total 960 400 Output Total 750 Balance 960 -350 - Medications Medications: Current Medications Acetaminophen (Tylenol 325mg Tab) 650 mg PO Q6 PRN PRN Reason: Pain, moderate (4-7) Last Admin: 09/05/18 22:31 Dose: 650 mg Alprazolam (Xanax) 0.5 mg PO BID PRN PRN Reason: Anxiety Last Admin: 09/08/18 18:35 Dose: 0.5 mg Aspirin (Ecotrin) 81 mg PO DAILY [facility] Last Admin: 09/08/18 09:54 Dose: 81 mg Calcium Carbonate (Oscal) 500 mg PO DAILY [facility] Last Admin: 09/08/18 09:54 Dose: 500 mg Docusate Sodium (Colace) 100 mg PO BID [facility] Last Admin: 09/08/18 17:50 Dose: 100 mg Folic Acid (Folic Acid) 1 mg PO DAILY [facility] Last Admin: 09/08/18 09:55 Dose: 1 mg Pantoprazole Sodium (Protonix Ec Tab) 40 mg PO DAILY [facility] Last Admin: 09/08/18 09:54 Dose: 40 mg Rosuvastatin Calcium (Crestor) 5 mg PO HS [facility] Last Admin: 09/08/18 21:20 Dose: 5 mg - Labs Labs: 09/07/18 13:58 09/07/18 13:58 PT 12.9 SECONDS (9.7-12.2) H 09/02/18 21:06 INR 1.2 09/02/18 21:06 APTT 24 SECONDS (21-34) 09/02/18 21:06
[2018-09-09] MEDS: Pantoprazole 40 mg EC Tab PO SCH (09:33)
--- NOTE | 2018-09-09 10:42 | CP.PCM.PN ---
<Kisha Craven - Last Filed: 09/09/18 10:40> Subjective - Date & Time of Evaluation Date of Evaluation: 09/09/18 Time of Evaluation: 10:41 - Subjective Subjective: Cardiology Follow Up Patient seen and examined at bedside. Patient denies any chest pain, shortness of breath or palpitations Objective - Vital Signs/Intake and Output Vital Signs (last 24 hours): Temp Pulse Resp BP Pulse Ox 97.9 F 80 20 130/79 100 09/09/18 07:00 09/09/18 07:00 09/09/18 07:00 09/09/18 07:00 09/09/18 07:00 Intake and Output: 09/09/18 09/09/18 06:59 18:59 Intake Total 400 Output Total 750 Balance -350 - Medications Medications: Current Medications Acetaminophen (Tylenol 325mg Tab) 650 mg PO Q6 PRN PRN Reason: Pain, moderate (4-7) Last Admin: 09/05/18 22:31 Dose: 650 mg Alprazolam (Xanax) 0.5 mg PO BID PRN PRN Reason: Anxiety Last Admin: 09/09/18 09:33 Dose: 0.5 mg Aspirin (Ecotrin) 81 mg PO DAILY [facility] Last Admin: 09/09/18 09:33 Dose: 81 mg Calcium Carbonate (Oscal) 500 mg PO DAILY [facility] Last Admin: 09/09/18 09:33 Dose: 500 mg Docusate Sodium (Colace) 100 mg PO BID [facility] Last Admin: 09/09/18 09:33 Dose: 100 mg Folic Acid (Folic Acid) 1 mg PO DAILY [facility] Last Admin: 09/09/18 09:33 Dose: 1 mg Pantoprazole Sodium (Protonix Ec Tab) 40 mg PO DAILY [facility] Last Admin: 09/09/18 09:33 Dose: 40 mg Rosuvastatin Calcium (Crestor) 5 mg PO HS [facility] Last Admin: 09/08/18 21:20 Dose: 5 mg - Labs Labs: 09/07/18 13:58 09/07/18 13:58 PT 12.9 SECONDS (9.7-12.2) H 09/02/18 21:06 INR 1.2 09/02/18 21:06 APTT 24 SECONDS (21-34) 09/02/18 21:06 - Additional Findings Additional findings: - Constitutional Appears: No Acute Distress - Head Exam Head Exam: NORMAL INSPECTION, NORMOCEPHALIC - Eye Exam Eye Exam: EOMI, Normal appearance, PERRL - ENT Exam ENT Exam: Mucous Membranes Moist - Respiratory Exam Respiratory Exam: Clear to Ausculation Bilateral. absent: Rales, Rhonchi, Wheezes - Cardiovascular Exam Cardiovascular Exam: +S1, +S2 - GI/Abdominal Exam GI & Abdominal Exam: Soft, Normal Bowel Sounds. absent: Distended, Tenderness - Extremities Exam Extremities Exam: Normal Inspection. absent: Pedal Edema, Tenderness - Neurological Exam Neurological Exam: Alert, Awake - Psychiatric Exam Psychiatric exam: Normal Affect, Normal Mood - Skin Skin Exam: Dry, Intact, Normal Color, Warm Assessment and Plan - Assessment and Plan (Free Text) Plan: CVA Imaging: - EKG: NSR - ECHO: Normal EF - Head / Neck CTA: No evidence of occlusion or significant stenosis bilaterally Management: - Continue with ASA and DVT PPX - Patient is not a good candidate for loop recorder - Primary team planning for [facility] discharge Case discussed with Kisha Casillas DO, PGY2 <Tariq Angel - Last Filed: 09/09/18 21:49> Objective - Vital Signs/Intake and Output Vital Signs (last 24 hours): Temp Pulse Resp BP Pulse Ox 97.8 F 92 H 20 127/66 98 09/09/18 15:00 09/09/18 15:00 09/09/18 15:00 09/09/18 15:00 09/09/18 15:00 Intake and Output: 09/09/18 09/10/18 18:59 06:59 Intake Total 300 Balance 300 - Medications Medications: Current Medications Acetaminophen (Tylenol 325mg Tab) 650 mg PO Q6 PRN PRN Reason: Pain, moderate (4-7) Last Admin: 09/05/18 22:31 Dose: 650 mg Alprazolam (Xanax) 0.5 mg PO BID PRN PRN Reason: Anxiety Last Admin: 09/09/18 09:33 Dose: 0.5 mg Aspirin (Ecotrin) 81 mg PO DAILY [facility] Last Admin: 09/09/18 09:33 Dose: 81 mg Calcium Carbonate (Oscal) 500 mg PO DAILY [facility] Last Admin: 09/09/18 09:33 Dose: 500 mg Docusate Sodium (Colace) 100 mg PO BID [facility] Last Admin: 09/09/18 17:36 Dose: 100 mg Folic Acid (Folic Acid) 1 mg PO DAILY [facility] Last Admin: 09/09/18 09:33 Dose: 1 mg Pantoprazole Sodium (Protonix Ec Tab) 40 mg PO DAILY [facility] Last Admin: 09/09/18 09:33 Dose: 40 mg Rosuvastatin Calcium (Crestor) 5 mg PO [facility] Last Admin: 09/09/18 21:24 Dose: 5 mg - Labs Labs: 09/07/18 13:58 09/09/18 14:10 PT 12.9 SECONDS (9.7-12.2) H 09/02/18 21:06 INR 1.2 09/02/18 21:06 APTT 24 SECONDS (21-34) 09/02/18 21:06 Assessment and Plan - Assessment and Plan (Free Text) Plan: Patient seen and evaluated personally by me Plan of care d/w the medical representative and as documented
[2018-09-09 14:35] LABS: BLOOD UREA NITROGEN 21 mg/dL (7-17); GFR NON-AFRICAN AMERICAN > 60
[2018-09-09 15:49] VITALS: BP 127/66; PULSE 92; TEMP 97.8; O2SAT 98
--- NOTE | 2018-09-09 16:30 | CP.PCM.PN ---
Subjective - Date & Time of Evaluation Date of Evaluation: 09/09/18 Time of Evaluation: 15:00 - Subjective Subjective: patient seen today , denies any chest pain, sob, c/o slight dizziness upon walking and anxiety No overnigh t events reported by RN Objective - Vital Signs/Intake and Output Vital Signs (last 24 hours): Temp Pulse Resp BP Pulse Ox 97.8 F 92 H 20 127/66 98 09/09/18 15:00 09/09/18 15:00 09/09/18 15:00 09/09/18 15:00 09/09/18 15:00 Intake and Output: 09/09/18 09/09/18 06:59 18:59 Intake Total 400 300 Output Total 750 Balance -350 300 - Medications Medications: Current Medications Acetaminophen (Tylenol 325mg Tab) 650 mg PO Q6 PRN PRN Reason: Pain, moderate (4-7) Last Admin: 09/05/18 22:31 Dose: 650 mg Alprazolam (Xanax) 0.5 mg PO BID PRN PRN Reason: Anxiety Last Admin: 09/09/18 09:33 Dose: 0.5 mg Aspirin (Ecotrin) 81 mg PO DAILY [facility] Last Admin: 09/09/18 09:33 Dose: 81 mg Calcium Carbonate (Oscal) 500 mg PO DAILY [facility] Last Admin: 09/09/18 09:33 Dose: 500 mg Docusate Sodium (Colace) 100 mg PO BID [facility] Last Admin: 09/09/18 09:33 Dose: 100 mg Folic Acid (Folic Acid) 1 mg PO DAILY [facility] Last Admin: 09/09/18 09:33 Dose: 1 mg Pantoprazole Sodium (Protonix Ec Tab) 40 mg PO DAILY [facility] Last Admin: 09/09/18 09:33 Dose: 40 mg Rosuvastatin Calcium (Crestor) 5 mg PO HS [facility] Last Admin: 09/08/18 21:20 Dose: 5 mg - Labs Labs: 09/07/18 13:58 09/09/18 14:10 PT 12.9 SECONDS (9.7-12.2) H 09/02/18 21:06 INR 1.2 09/02/18 21:06 APTT 24 SECONDS (21-34) 09/02/18 21:06 Assessment and Plan - Assessment and Plan (Free Text) Assessment: A/P 87 yr old female with AMS and s/p fall at home MRI- No acute intracranial abnormality. SEevere chronic microangiopathic changes and moderate age-related global parenchymal volume loss. patient mental status improved ECHO: Normal EF Head / Neck CTA: No evidence of occlusion or significant stenosis bilaterally labs a nd vss - reviewed - stable Patient accepted at [facility] for rehab and patient in agreement d/w Dr. Hernandez, stable for discharge to [facility] today and Dr. Hernandez will follow the [place] [facility] [place] discharge plan discussed with patient
--- NOTE | 2018-09-09 22:37 | CP.PCM.DIS ---
Provider - Provider Date of Admission: 09/02/18 20:45 Attending physician: Sandeep Hernandez MD Consults: 09/02/18 21:50 Cardiology Consult 12O Comment: Consulting Provider: Tariq Angel Consulting Physician: Tariq Angel Reason for Consult: c.atherosclerosis 09/04/18 12:12 Neurology Consult Routine Comment: Consulting Provider: David Martinez Consulting Physician: David Martinez Reason for Consult: [facility] Course - Lab Results Lab Results: Most Recent Lab Values WBC 10.4 K/uL (4.8-10.8) 09/07/18 13:58 RBC 4.67 Mil/uL (3.80-5.20) 09/07/18 13:58 Hgb 14.0 g/dL (11.0-16.0) 09/07/18 13:58 Hct 43.7 % (34.0-47.0) 09/07/18 13:58 MCV 93.5 fL (81.0-99.0) 09/07/18 13:58 MCH 30.1 pg (27.0-31.0) 09/07/18 13:58 MCHC 32.2 g/dL (33.0-37.0) L 09/07/18 13:58 RDW 14.7 % (11.5-14.5) H 09/07/18 13:58 Plt Count 183 K/uL (130-400) 09/07/18 13:58 MPV 8.0 fL (7.2-11.7) 09/07/18 13:58 Neut % (Auto) 71.4 % (50.0-75.0) 09/07/18 13:58 Lymph % (Auto) 20.4 % (20.0-40.0) 09/07/18 13:58 Ashley % (Auto) 5.6 % (0.0-10.0) 09/07/18 13:58 Eos % (Auto) 2.2 % (0.0-4.0) 09/07/18 13:58 Baso % (Auto) 0.4 % (0.0-2.0) 09/07/18 13:58 Neut # (Auto) 7.5 K/uL (1.8-7.0) H 09/07/18 13:58 Lymph # (Auto) 2.1 K/uL (1.0-4.3) 09/07/18 13:58 Ashley # (Auto) 0.6 K/uL (0.0-0.8) 09/07/18 13:58 Eos # (Auto) 0.2 K/uL (0.0-0.7) 09/07/18 13:58 Baso # (Auto) 0.0 K/uL (0.0-0.2) 09/07/18 13:58 PT 12.9 SECONDS (9.7-12.2) H 09/02/18 21:06 INR 1.2 09/02/18 21:06 APTT 24 SECONDS (21-34) 09/02/18 21:06 Puncture Site Rfa 09/02/18 20:50 pCO2 17 mm/Hg (35-45) L* 09/02/18 20:50 pO2 162 mm/Hg (80-100) H 09/02/18 20:50 HCO3 17.3 mmol/L (21-28) L 09/02/18 20:50 ABG pH 7.44 (7.35-7.45) 09/02/18 20:50 ABG Total CO2 12.0 mmol/L (22-28) L 09/02/18 20:50 ABG O2 Saturation 98.6 % (95-98) H 09/02/18 20:50 ABG Base Excess -9.9 mmol/L (-2.0-3.0) L 09/02/18 20:50 Yannick Test Pos 09/02/18 20:50 ABG Potassium 2.3 mmol/L (3.6-5.2) L* 09/02/18 20:50 A-a O2 Difference -34.0 mm/Hg 09/02/18 20:50 Respiratory Index -0.2 09/02/18 20:50 Sodium 148.0 mmol/l (132-148) 09/02/18 20:50 Chloride 124.0 mmol/L (98-107) H 09/02/18 20:50 Glucose 78 mg/dl (65-105) 09/02/18 20:50 Lactate 0.8 mmol/L (0.7-2.1) 09/02/18 20:50 FiO2 21.0 % 09/02/18 20:50 Crit Value Called To Dr david 09/02/18 20:50 Crit Value Called By Gm olson 09/02/18 20:50 Crit Value Read Back Y 09/02/18 20:50 Blood Gas Notified Time 205409/02/18 20:50 Sodium 133 mmol/L (132-148) 09/09/18 14:10 Potassium 4.7 mmol/L (3.6-5.2) 09/09/18 14:10 Chloride 98 mmol/L (98-107) 09/09/18 14:10 Carbon Dioxide 26 mmol/L (22-30) 09/09/18 14:10 Anion Gap 14 (10-20) 09/09/18 14:10 BUN 21 mg/dL (7-17) H 09/09/18 14:10 Creatinine 0.7 mg/dL (0.7-1.2) 09/09/18 14:10 Est GFR ( Amer) > 60 09/09/18 14:10 Est GFR (Non-Af Amer) > 60 09/09/18 14:10 POC Glucose (mg/dL) 171 mg/dL (65-110) H 09/09/18 21:28 Random Glucose 164 mg/dL (65-105) H 09/09/18 14:10 Hemoglobin A1c 6.7 % (4.2-6.5) H 09/02/18 19:52 Calcium 9.0 mg/dl (8.6-10.4) 09/09/18 14:10 Phosphorus 4.0 mg/dL (2.5-4.5) 09/07/18 13:58 Magnesium 1.9 mg/dL (1.6-2.3) 09/07/18 13:58 Total Bilirubin 0.7 mg/dL (0.2-1.3) 09/07/18 13:58 AST 33 U/L (14-36) 09/07/18 13:58 ALT 28 U/L (9-52) 09/07/18 13:58 Alkaline Phosphatase 87 U/L (38-126) 09/07/18 13:58 Troponin I < 0.0120 ng/mL (0.00-0.120) 09/02/18 21:06 Total Protein 7.3 g/dL (6.3-8.3) 09/07/18 13:58 Albumin 3.9 g/dL (3.5-5.0) 09/07/18 13:58 Globulin 3.4 gm/dL (2.2-3.9) 09/07/18 13:58 Albumin/Globulin Ratio 1.2 (1.0-2.1) 09/07/18 13:58 Triglycerides 68 mg/dL (0-149) 09/02/18 22:06 Cholesterol 175 mg/dL (0-199) 09/02/18 22:06 LDL Cholesterol Direct 96 mg/dL (0-129) 09/02/18 22:06 HDL Cholesterol 60 mg/dL (30-70) 09/02/18 22:06 Arterial Blood Potassium 2.3 mmol/L (3.6-5.2) L* 09/02/18 20:50 B-Hydroxybutyrate 0.35 mM (0.02-0.27) H 09/02/18 21:06 Blood Type A POSITIVE 09/02/18 21:01 Antibody Screen Negative 09/02/18 21:01 Discharge Exam - Head Exam Head Exam: NORMAL INSPECTION, NORMOCEPHALIC Discharge Plan - Discharge Medications Prescriptions: Insulin Aspart, Recombinant [Novolog] See Protocol SC ACHS #1 ml - Follow Up Plan Condition: GUARDED Disposition: HOME/ ROUTINE Instructions: Heart Healthy Diet, Diabetes Exchange Diet, Preventing Falls in the Older Adult, Stroke (DC), Diabetes Diet Additional Instructions: PLEASE ADMIT PATIENT UNDER DR. HERNANDEZ SERVICE- CALL DR. HERNANDEZ UPON PATIENT ARRIVAL TO THE FACILITY CONTINUE MEDICATION PER MED. REC. accucheck achs with sliding scale please do cbc, bmp q weekly Referrals: Sandeep Hernandez MD [Staff Provider] -
--- NOTE | 2018-09-10 05:01 | DS ---
DISCHARGE DIAGNOSES: Syncope with fall, hypertension, type 2 diabetes, anxiety, depression, hyperlipidemia. HISTORY OF PRESENT ILLNESS: This is an 87-year-old white female with history of recurrent fall, cerebrovascular accident was ruled out by negative MRI. The patient was evaluated. She underwent physiotherapy, neurology evaluation, extensive workup was done and workup ruled out cerebrovascular accident. The patient needs physiotherapy. She is not a safe discharge. She most likely needs a placement, and the patient's carotid Doppler was negative for carotid stenosis. The patient also underwent CT of the orbit, which showed thickening of the sphenoid sinus. Other than that, there was no evidence of orbital fracture. CT of cervical spine did not show any acute fracture. The patient had arthritic changes in the neck. PHYSICAL EXAMINATION: VITAL SIGNS: The patient's blood pressure was 127/66, pulse 92, respiratory rate 20, temperature 97.8. LUNGS: Clear. CARDIOVASCULAR SYSTEM: S1 and S2 regular. ABDOMEN: Soft. LABORATORY DATA: Sodium 133, potassium 4.7, chloride 98, bicarb 23, BUN 21, creatinine 0.7, WBC 10.3, hemoglobin 14, hematocrit 43.7, platelet 183. CONDITION UPON DISCHARGE: Stable, transferred patient to subacute rehab. Sandeep Hernandez MD
== END 2018-09-09 21:45 | DRG 312 ==
LOC: C.ER 19:03 → C.6T 20:45
PROVIDERS: ADMIT Internal Medicine; ATTEND Internal Medicine
DX: R55 Syncope and collapse (principal); R47.01 Aphasia; E11.9 Type 2 diabetes mellitus without complications; E78.00 Pure hypercholesterolemia, unspecified; F03.90 Unspecified dementia, unspecified severity, without behavioral disturbance, psychotic disturbance, mood disturbance, and anxiety; F41.9 Anxiety disorder, unspecified; I10 Essential (primary) hypertension; S00.83XA Contusion of other part of head, initial encounter; W18.30XA Fall on same level, unspecified, initial encounter; R29.6 Repeated falls; R41.82 Altered mental status, unspecified; F41.1 Generalized anxiety disorder; F32.9 Major depressive disorder, single episode, unspecified